=== PATIENT | female | born 1965 | race Caucasian/White ===

== ENCOUNTER 2016-07-20 11:15 | Emergency (ER) | payer SELFPAY ==
[~2016-07-20] VITALS: Ht 167.6 cm; Wt 109.5 kg
[~2016-07-20 11:15] MED LIST: AMLO-114 PO; CIPR-255 PO; DICL-201 PO; DICY20TA35 PO; EFF75 PO; GABA1CAP5 PO; GLC/500 PO; METO50TA16 PO; NAPR1TAB9 PO; ONDA4TAB10 SL; OXYC1TAB3 PO
[2016-07-20 11:21] VITALS: TEMP 36.2; Ht 167.6 cm; Wt 109.5 kg
--- NOTE | 2016-07-20 12:01 | DIAGNOSTIC IMAGING REPORT ---
RIGHT KNEE 3 VIEWS CLINICAL HISTORY: R knee pain Right pain COMPARISON: None. DISCUSSION: The bones and joint spaces appear intact. There is no evidence of fracture, dislocation or bony disease. There is no evidence for soft tissue swelling. IMPRESSION: Negative study. Electronically signed by: Shelton Lee M.D. 07/20/2016 11:59 AM Dictated Date/Time: 07/20/2016 11:59 AM
[2016-07-20] MEDS ORDERED: IBUP-1451 PO (12:25)
[2016-07-20] MEDS ORDERED: AMOX500C3 PO (12:25)
[2016-07-20 12:34] VITALS: BP 186/106; PULSE 73; O2SAT 97
--- NOTE | 2016-07-20 12:39 | EMERGENCY ROOM VISIT NOTE ---
History First contact with patient: 11:37 Chief Complaint: KNEEPAIN Stated Complaint: SEVERE KNEE PAIN History of Present Illness The patient is a 51 year old female who presents to the Emergency Room with 2 complaints today. The patient presents primarily with right knee pain that has been ongoing for the past several days. She denies any recent injury to the knee. 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 The patient reports that she did injure her right knee several years ago and was seen by Dr. Almeida. She did have an MRI of the knee that was normal. She has had no problems since that time of injury. The patient now reports that when she walks or attempts to turn, it feels like her knee wants to give out under her. She does feel an occasional popping sensation. The pain is not significantly worsened when going up or down steps. She denies any pain extending into the thigh or leg, and rates her discomfort a 7 out of 10 with weightbearing. She does take diclofenac for osteoarthritis, and has been taking it "forever". She does not feel that it is working for her anymore. The patient is also requesting a prescription for chronic sinusitis. She reports increasing pressure and congestion for the past month or better. She denies any significant headaches, fevers or blurred vision. She denies any significant sinus pain at this time. Review of Systems 10 system review was performed and was negative except for pertinent positives and negatives as indicated in history of present illness Past Medical/Surgical History Surgical Problems: (1) S/P gastroplasty Medical Problems: (1) Alcohol Abuse-Unspec (2) Chronic Sinusitis Nos (3) Diab Lolita Wo Compl, Type Ii Or Unspec Type, Not Uncntrld (4) Hx-Venous Thrombosis&Embolism (5) Hyperlipidemia Nec/Nos (6) Hypertension Nos (7) Irritable Bowel Syndrome Without Diarrhea (8) Ovarian Cyst Nec/Nos (9) Tobacco Use Disorder Surgical Problems: (1) S/P gastroplasty Family History FH: diabetes mellitus FH: gallbladder disease FH: heart disease FH: hypertension FH: kidney disease FH: seizures Social History Smoking Status: Current Every Day Smoker Drug Use: none Marital Status: Occupation Status: employed Current/Historical Medications Scheduled Amlodipine (Norvasc), 10 MG PO QPM Amoxicillin (Amoxil), 500 MG PO TID Diclofenac (Voltaren), 75 MG PO BID Gabapentin (Neurontin), 400 MG PO TID Metformin Hcl (Glucophage), 500 MG PO BID Metoprolol Tartrate (Lopressor) (Lopressor), 50 MG PO QID Scheduled PRN Ibuprofen Tab (Motrin), 800 MG PO Q8H PRN for Pain Allergies Coded Allergies: Adhesives (Verified Allergy, Unknown, rash, 07/20/16) Nickel (Verified Allergy, Unknown, contact dermatitis, 07/20/16) Physical Exam Vital Signs Date Time Temp Pulse Resp B/P Pulse Ox O2 Delivery O2 Flow Rate FiO2 07/20/16 11:21 36.2 74 18 187/111 97 Room Air Physical Exam CONSTITUTIONAL: Healthy and well nourished. Alert and oriented X 3 with positive affect. HEENT: Normocephalic, atraumatic. Pupils equal, round and reactive. No purulent rhinorrhea. No tenderness to palpation or percussion of the frontal or maxillary sinuses. Ears and nares are clear. NECK: Full active range of motion without discomfort. No JVD or carotid bruits. RESPIRATORY: Clear to auscultation bilaterally with no wheezing, crackles, rhonchi or stridor. CARDIOVASCULAR: Regular rate and rhythm with no murmurs, rubs or gallops. MUSCULOSKELETAL: Examination of the right knee shows diffuse tenderness to palpation about the patella and joint lines. Collateral ligaments are intact. The patient has full active range of motion with mild discomfort. No obvious joint effusion noted. No tenderness to palpation through the hamstrings. Negative anterior draw, negative posterior drawer, negative pivot shift. Pedal pulses are intact. INTEGUMENTARY: No rash or other significant dermatologic conditions noted. NEUROLOGIC: Right foot and toes are sensory intact. Medical Decision & Procedures ER Provider Diagnostic Interpretation: My interpretation of right knee x-rays shows mild to moderate tricompartmental osteoarthritis. No fractures or obvious joint effusion noted. RIGHT KNEE 3 VIEWS CLINICAL HISTORY: R knee pain Right pain COMPARISON: None. DISCUSSION: The bones and joint spaces appear intact. There is no evidence of fracture, dislocation or bony disease. There is no evidence for soft tissue swelling. IMPRESSION: Negative study. ED Course Patient history and physical exam were performed. Nurse's notes were reviewed. The patient refused any analgesics. X-rays of the right knee shows mild to moderate osteoarthritic changes. The patient reports that if she has some pain to keep her knee from bending, it would help her pain. In the immobilizer was dispensed. She was encouraged to intermittently apply ice to the knee. She was instructed to stop the diclofenac for now, and switched to ibuprofen 800 mg every 8 hours. She was also encouraged to alternate Tylenol as well for additional pain relief. She was encouraged to try limiting weightbearing for now. I did encourage her to follow-up with her PCP or orthopedics for any persistent pain. The patient was also requesting an antibiotic on [employer]s $4 antibiotic list. She has been on multiple antibiotics in the past, and reports that they all work. She was therefore given a prescription for amoxicillin 500 mg 3 times a day 10 days. She was instructed to follow-up with her family doctor if her sinus symptoms persist. The patient was happy with plan of care, voiced understanding of all discharge instructions, and denied any significant discomfort at the time of discharge. Medical Decision Impression Primary Impression: Right knee pain Additional Impressions: Osteoarthritis of right knee Sinusitis, acute Departure Information Prescriptions Ibuprofen Tab (MOTRIN) 800 Mg Tab 800 MG PO Q8H Y for Pain, #60 TAB For Initial Treatment Prov: Jonah Restrepo PA 07/20/16 Amoxicillin (AMOXIL) 500 Mg Cap 500 MG PO TID for 10 Days, #30 CAP Prov: Jonah Restrepo PA 07/20/16 Referrals Terese Funes D.O. (PCP) Patient Instructions My [facility] Problem Qualifiers Primary Impression: Right knee pain Chronicity: acute Qualified Codes: M25.561 - Pain in right knee Additional Impressions: Osteoarthritis of right knee Osteoarthritis type: primary Qualified Codes: M17.11 - Unilateral primary osteoarthritis, right knee Sinusitis, acute Sinusitis location: unspecified location Recurrence: recurrent Qualified Codes: J01.91 - Acute recurrent sinusitis, unspecified
== END 2016-07-20 12:38 | disposition home or self-care (01) ==
LOC: C.EDB 11:17 → C.EDD 12:38
DX: M25.561 Pain in right knee (principal); M17.11 Unilateral primary osteoarthritis, right knee; J01.91 Acute recurrent sinusitis, unspecified; F10.10 Alcohol abuse, uncomplicated; E11.9 Type 2 diabetes mellitus without complications; E78.5 Hyperlipidemia, unspecified; I10 Essential (primary) hypertension; K58.9 Irritable bowel syndrome, unspecified; F17.210 Nicotine dependence, cigarettes, uncomplicated; Z83.3 Family history of diabetes mellitus; Z83.79 Family history of other diseases of the digestive system; Z82.49 Family history of ischemic heart disease and other diseases of the circulatory system; Z84.1 Family history of disorders of kidney and ureter; Z79.899 Other long term (current) drug therapy

== ENCOUNTER 2024-08-19 13:00 | Inpatient (IN) ==
--- NOTE | 2024-08-19 13:16 | History & Physical Report ---
Date of Service August 19, 2024 Assessment & Plan (1) STEMI (ST elevation myocardial infarction): (2) Chest pain: Plan: Patient is 59 year old female with PMH DM II, HTN, PVC's on Flecainide, COPD, hypothyroidism, depression, chronic back pain, RLS, tobacco use, obesity presented to ER with c/o anterior neck pain, CP with radiation to back and RUE pain this morning. En route given 324mg aspirin and 3 SL nitro and fentanyl by EMS and was made a heart alert. 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 Patient reports upon leaving slabbing machine operator and arriving to ICU she had some anterior chest pain that she rated 2 out of 10 on pain scale that self resolved in several minutes. Currently chest pain free. Interventional cardiology consult and S/P cardiac cath 1. Severe multivessel coronary disease involving the LAD and PDA. LAD is the culprit. 2. Successful PCI of the LAD with implantation of 3 overlapped drug-eluting stents. 3. Patient will be on dual antiplatelet therapy for at least 1 to 2 years (preferably indefinitely secondary to extensive stenting). 4. Guideline directed medical therapy for secondary prevention of coronary disease has been initiated. This includes low-dose aspirin, high intensity statin therapy, beta-ld, and ARB (given diabetes). Additional titration of regimen to achieve target heart rate and blood pressure. 5. FLECAINIDE has been discontinued with newly identified CAD. ICU for close telemetry monitoring Resting echo ordered Trend troponin Aspirin, Brilinta, metoprolol tartrate, rosuvastatin, losartan Cardiology consult. CBC, BMP, magnesium labs in am 08/11/24 Lipid panel: Total cholesterol: 177, LDL: 104, HDL: 39, Triglycerides: 218 #PVC's History PVCs, has seen [facility] cardiology in past. On Flecainde and metoprolol tartrate 50mg 5 times a day Cardiology consult. Of note patient with h/o PVCs and is on Flecainide and takes metoprolol tartrate 50mg Five times a day. duplicating machine operator discontinued Flecainide and ordered metoprolol tartrate 25mg BID. Would appreciate cardiology consult and recommendations on medication regimen going forward as I anticipate patient may become more symptomatic with palpitations with change of medications (3) Type 2 diabetes mellitus: Plan: A1c: 6.5 on 08/11/24 Hold home metformin Novolog sliding scale per protocol (4) Hypertension: Plan: Previously was on home amlodipine 10mg daily, metoprolol tartrate 50mg 5x day With newly dx CAD losartan 25mg daily started. Will hold home amlodipine at this time and monitor BP for further medication adjustments (5) COPD (chronic obstructive pulmonary disease): Plan: No signs exacerbation Continue home inhalers (6) Hypothyroidism: Plan: TSH: 0.87 on 08/11/24 Continue levothryoxine (7) Depression: Plan: Continue venlafaxine (8) Tobacco use disorder: Plan: Was smoking 1.5ppd and over past 5 months is now down to smoking 5 cigarettes a day Congratulated patient on her success and encouraged cessation. Patient reports is now more motivated to completely quit DVT Prophylaxis SCDs Admit ICU Full Code as per discussion with pt Follows with Re Durham PA-C for routine care Pt was seen and care coordinated with Dr Obando. See addendum I spent a total of 65 minutes reviewing notes, outpatient records, labs, medication, coordinating, documenting and providing care for this patient excluding time spent in the performance of separately billed services and excluding time spent by another provider/QHP. History of Present Illness Chief Complaint: CP Primary Care Provider: Re Durham PA-C Patient is 59 year old female with PMH DM II, HTN, PVC's on Flecainide, COPD, hypothyroidism, depression, chronic back pain, RLS, tobacco use, obesity presented to ER with c/o CP this morning. Patient reports woke up this morning and had aching/soreness sensation of throat/anterior neck region. Then started with pain to chest that radiated to back and reports RUE pain. States had associated nausea and vomiting. She was given 324mg aspirin and 3 SL nitro and fentanyl by EMS and was a heart alert. 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 Patient reports upon leaving slabbing machine operator and arriving to ICU she had some anterior chest pain that she rated 2 out of 10 on pain scale that self resolved in several minutes. Patient denies any N/V, back pain with this episode. She is currently chest pain free. She has chronic palpitations and takes metoprolol tartrate fives times a day as well as flecainide. Patient reports chronic paresthesias extremities and chronic back pain. She denies any increased palpitations Denies SOB. Denies fever/chills, diarrhea, constipation, SOW, dizziness, syncope, vision changes, neck pain, cough, rhinorrhea, abdominal pain, extremity weakness, extremity edema, rashes, urinary symptoms. Allergies Allergy/AdvReac Type Severity Reaction Status Date / Time latex Allergy Mild SKIN Verified 12/18/22 09:41 REDNESS/ITCHING adhesive Allergy Unknown rash Verified 12/18/22 09:41 nickel Allergy Unknown contact Verified 12/18/22 09:41 dermatitis cefdinir [From Omnicef] AdvReac Intermediate diarrhea Verified 12/18/22 09:41 Home Medications Medication Instructions Recorded Confirmed Type albuterol sulfate 90 mcg/actuation 2 inha inhalation QID PRN 04/17/18 08/19/24 Rx aerosol inhaler shortness of breath or wheezing #1 g amlodipine 10 mg tablet (Norvasc) 10 mg PO HS 06/12/22 08/19/24 History cholecalciferol (vitamin D3) 1,250 1,250 mcg PO .weekly 06/12/22 08/19/24 History mcg (50,000 unit) tablet metformin 500 mg tablet 500 mg PO PM 06/12/22 08/19/24 History multivitamin 1 tab PO DAILY 06/12/22 08/19/24 History flecainide 50 mg tablet 100 mg PO DAILY 07/27/22 08/19/24 History trazodone 50 mg tablet 100 mg PO HS PRN Insomnia 07/27/22 08/19/24 History umeclidinium 62.5 mcg-vilanterol 1 inh inhalation QAM 07/27/22 08/19/24 History 25 mcg/actuation powdr for inhalation (Anoro Ellipta) celecoxib 200 mg capsule (Celebrex) 200 mg PO DAILY 12/18/22 08/19/24 History gabapentin 400 mg tablet 400 mg PO TID 12/18/22 08/19/24 History metoprolol tartrate 50 mg tablet 50 mg PO 5XD 12/18/22 08/19/24 History spironolactone 50 mg tablet 50 mg PO DAILY #30 tabs 12/18/22 08/19/24 Rx (Aldactone) levothyroxine 88 mcg tablet 88 mcg PO DAILY #30 tabs 12/28/22 08/19/24 Rx flecainide 50 mg tablet 50 mg PO PM 08/19/24 08/19/24 History venlafaxine 150 mg 150 mg PO PM 08/19/24 08/19/24 History capsule,extended release 24 hr venlafaxine 75 mg tablet,extended 75 mg PO PM 08/19/24 08/19/24 History release 24 hr Past Med/Surg History Problem List STEMI (ST elevation myocardial infarction) Chest pain Depression Lumbar spondylosis Chronic low back pain Lumbar facet joint syndrome Hypothyroidism PCOS (polycystic ovarian syndrome) Metabolic syndrome Hirsutism Dexamethasone suppressible hyperaldosteronism Vitamin D deficiency Type 2 diabetes mellitus Encounter for pre-operative examination Cecal diverticulitis (Acute) Encounter for other preprocedural examination History of back problems Tubal ligation status Fibroma of intraoral region Parotid gland pain Chronic sinus infection 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 Arthritis Diabetes NIDDM Hypertension Medical History Tobacco use disorder Irritable bowel syndrome without diarrhea Frequent PVCs lost to f/u with [facility] cardio COPD (chronic obstructive pulmonary disease) History of diverticulitis Sinus congestion CHRONIC Sinus drainage CHRONIC- POST NASAL DRIP Surgical History Hx of oral surgery (08/02/22) p Excision of Mass Right Cheek (Large Fibroma), Excision of Radiolucent Lesion Right Floor of Sinus and Maxilla,(Right), closure of large lateral sinus wall opening with advancement flap - Lewis Castillo DMD s Extraction of Teeth 1, 2, 3, 15, 20(Not Applicable) - Lewis Castillo DMD Hx of abdominal surgery ABDOMINAL FISTULA REPAIR History of esophagogastroduodenoscopy (EGD) History of cardiac radiofrequency ablation FOR PALPITATIONS H/O excision of mass History of gastric surgery H/O hernia repair x2 S/P cholecystectomy History of surgery vertical banded gastroplasty H/O abdominoplasty Previous section H/O knee surgery Family History Aunt Breast cancer Mother Diabetes Heart disease Hypertension Sister Diabetes Stroke Father Heart disease Grandmother Stroke Other Colorectal cancer No pertinent family history Social History (Updated 08/19/24 @ 16:36 by Denae Perez PA-C) Smoking Status: Current every day smoker Tobacco Type: Cigarettes packs per day: 1; Cigarettes Per Day: 5 cig per day; Second Hand Exposure: No; Do You Dip or Chew Tobacco: No; Hx Alcohol Use: No Hx Substance Use: No Preferred Language: Greenlandic Communication Ability: Effective Visual Impairment: No Limitations 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 Required: No Beliefs That Will Affect Care: None marital status: Current Living Situation: Family current occupational status: student How many Children do You have: 1 Feels Safe at Home: Yes Safety Concerns: Feels Safe At This Time Diet: diabetic during the past year weight has: decreased > 10 lbs Assistive Devices: Glasses Review of Systems Review of Systems: All systems reviewed & are unremarkable except as noted in HPI & below Physical Exam Physical Exam: General: no distress, obese female Head: normocephalic, atraumatic Eyes: conjunctiva non-injected, anicteric ENT: normal inspection external ears, nose, mucous membranes moist Neck: supple, trachea midline Lungs: clear, no respiratory distress, no wheezing/rhonchi/rales CV: RRR, no murmur, no pretibial edema Abd: protuberant, normal BS, soft, non-tender Ext: no cyanosis, no calf tenderness Neuro: A&O x 3, no focal deficits noted, normal affect Skin: warm, dry Results & Data Results & Data Laboratory Results Short CBC 08/19/24 Range/Units 12:45 WBC 13.52 H (4.8-10.8) K/ul Hgb 14.5 (12.0-16.0) g/dl Hct 42.2 (37.0-47.0) % Plt Count 324 (130-400) K/uL BMP 08/19/24 14:19 Sodium 132 L Potassium 4.0 Chloride 100 Carbon Dioxide 25 BUN 18 Creatinine 0.95 Glucose 119 H Calcium 9.4 Medications Administered Home Medications Medication Instructions Recorded Confirmed Last Taken albuterol sulfate 90 mcg/actuation 2 inha inhalation QID PRN 04/17/18 12/18/22 Unknown aerosol inhaler shortness of breath or wheezing #1 g amlodipine 10 mg tablet (Norvasc) 10 mg PO HS 06/12/22 12/18/22 08/01/22 22:00 cholecalciferol (vitamin D3) 1,250 1,250 mcg PO .weekly 06/12/22 12/18/22 07/26/22 22:00 mcg (50,000 unit) tablet lactobacillus combo no.11 15 1 cap PO DAILY 06/12/22 12/18/22 08/01/22 12:00 billion cell sprinkle capsule (Probiotic) metformin 500 mg tablet 500 mg PO BID 06/12/22 12/18/22 08/01/22 09:00 multivitamin 1 tab PO DAILY 06/12/22 12/18/22 08/01/22 12:00 vitamin B complex (B 1 tab PO QAM 06/12/22 12/18/22 08/01/22 12:00 Complex-Vitamin B12 tablet) flecainide 50 mg tablet 50 mg PO Q8H 07/27/22 12/18/22 08/01/22 04:30 trazodone 50 mg tablet 50 mg PO HS 07/27/22 12/18/22 08/01/22 22:00 umeclidinium 62.5 mcg-vilanterol 1 inh inhalation QAM 07/27/22 12/18/22 08/01/22 04:30 25 mcg/actuation powdr for inhalation (Anoro Ellipta) celecoxib 200 mg capsule (Celebrex) 200 mg PO DAILY 12/18/22 12/18/22 Unknown dexamethasone 1 mg tablet 1 mg PO DAILY #1 tab 12/18/22 12/18/22 Unknown gabapentin 400 mg tablet 400 mg PO QID 12/18/22 12/18/22 Unknown metoprolol tartrate 50 mg tablet 50 mg PO 5XD 12/18/22 12/18/22 Unknown ondansetron HCl 8 mg tablet 8 mg PO Q8H PRN nausea and vomiting 12/18/22 12/18/22 Unknown spironolactone 50 mg tablet 50 mg PO DAILY #30 tabs 12/18/22 12/18/22 Unknown (Aldactone) venlafaxine 50 mg tablet 225 mg PO HS 12/18/22 12/18/22 Unknown levothyroxine 88 mcg tablet 88 mcg PO DAILY #30 tabs 12/28/22 Unknown Supervising Physician Co-Signing Physician Notes I have seen and discussed the case with the collaborating advanced practitioner. I agree with the above H&P. I have reviewed and confirmed the patients medical history, the findings on physical examination, and the patients diagnosis and treatment plan with and agree with the information documented. Ms Kelley 59 year old female with PMH DM II, HTN, PVC's on Flecainide, COPD, hypothyroidism, depression, chronic back pain, RLS, tobacco use, obesity presented to ER with c/o anterior neck pain, CP s/p LHC 2/2 STEMI Patient is now s/p 3 REGINA of LAD Patient is doing well overall and despite initial chest pain s/p cath, feels symptom free. Patient denies any questions or concern EXAM AOx3. RRR and CTABL #STEMI #Obstructive coronary artery disease s/p stents continue asa, brilinta continue metoprolol 25mg bid hold flecinide 2/2 structural heart disease iso CAD, Cards consulted for any other recommendations/reassurance as patient on antiarrhythmic therapy for years admit icu rest of plan per HP I spent a total of 35 minutes coordinating, documenting, and providing care for this patient excluding time spent in the performance of separately billed services. All of the aforementioned completed outside of collaborating with the assigned advanced practitioner for a full treatment plan. I have reviewed the advanced practitioner's documentation, and I agree with, and take responsibility for the plan of care
--- NOTE | 2024-08-19 13:25 | Pre Anesthesia Assessment ---
Date of Service August 19, 2024 Pre Sedation Assessment Vital Signs Pulse 08/19/24 13:15 73 Cardiovascular RRR, no murmur, no edema Respiratory normal respiratory effort, lungs clear to auscultation Pre-Sedation Airway Assessment Smoking Status: Current every day smoker Mallampati class 3 ASA IV Notes The planned sedation has been discussed with the patient. Informed Consent was obtained. I have identified the patient, determined the appropriateness of sedation and have assessed the patient immediately prior to the procedure. All medicine(s) and interventions are by my order. [facility] [place] Procedure Codes (Charges) Indication for Procedure Indication for procedure: STEMI
[2024-08-19] MEDS: fentaNYL citrate PF 100 MCG/2 ML VIAL ONE (14:11)
[2024-08-19] MEDS: HEPARIN (PORCINE) 1000 UNIT/ML 10 ML (CATH LAB USE ONLY) ONE (14:11)
[2024-08-19] MEDS: MIDAZOLAM HCL 1 MG/ML 2ML VIAL ONE (14:12)
[2024-08-19] MEDS: OPTIRAY 350 ONE (14:12)
[2024-08-19] MEDS: NITROGLYCERIN/D5W 100MCG/ML 20ML SYR ONE (14:13)
[2024-08-19] MEDS: niCARdipine 2,000 MCG/20 ML SYR ONE (14:13)
[2024-08-19] MEDS: TICAGRELOR 90 MG TAB ONE (14:13)
--- NOTE | 2024-08-19 14:13 | Post Anesthesia Assessment ---
Date of Service August 19, 2024 Post Sedation Assessment Vital Signs Temp Pulse Pulse Resp BP BP Pulse Ox 08/19/24 13:15 73 08/19/24 13:13 36.8 C 72 21 131/79 97 08/19/24 13:13 97 08/19/24 13:13 36.8 C 72 21 131/79 97 O2 Del Method 08/19/24 13:15 08/19/24 13:13 Room Air 08/19/24 13:13 Room Air 08/19/24 13:13 Room Air Recovery Score Activity: Moves 4 extremities Respiration: Deep Breath/Cough Circulation: +/-20% PreAnes Value Consciousness: Fully Awake Oxygen Saturation: > 92% On Room Air Discharge Sedation Level of Care: Fast Track Phase II Post Sedation Plan On clinical assessment, the patient appears to have tolerated the sedation without complications. Patient is recovering as anticipated. Patient will continue to be monitored by nursing and may be discharged when sedation discharge criteria are met per below protocol. Upon Completions of procedure up to 15 minutes continue every 5 minute vital signs and the P.A.R. score; then discharge to a Phase I or Fast Track to Phase II per the following guidelines: * Discharge Patient to appropriate Phase II area if PAR is 8 or greater or return to pre- procedure baseline. The post - procedure orders will be as directed. * If PAR score is less than 8 or not return to pre-procedure baseline then patient will follow Phase I monitoring till PAR is reached for Phase II. The Phase I may be done in procedure room or may call to secure a Phase I area. * If naloxone or flumazenil are used for reversal, hold in Phase I for continued monitoring from when last reversal dose was given for a minimum of 60 minutes or longer pending the nurse and/or physician discretion of patient condition before discharge to Phase II. Please call the Sedation Physician to re-evaluate and complete post-note for discharge to Phase II area. Do NOT discharge from procedure sedation or Phase 1 until post- sedation evaluation note is complete by procedure /sedation MD Sedation Discharge Instructions to be given to the patient at discharge to home. [facility] [place] Procedure Codes (Charges) Indication for Procedure Indication for procedure: STEMI Sedation/Anesthesia Procedure 1: Sedation/Anesthesia: 16809 Mod Sedation by the same physician;Init15 Min Child Age 5 & Up (Initial 15 minutes, start time 1334) Total Sedation Time (minutes): 33 Procedure 2: Sedation/Anesthesia: 88031 Mod Sedation by the same physician; Ea [id number] Minutes (Additional 18 minutes, end time 1407) Total Sedation Time (minutes): 33
[2024-08-19] MEDS ORDERED: ONDANSETRON INJ 2 MG/ML 2 ML VIAL IV PRN (14:14)
[2024-08-19] MEDS ORDERED: ATROPINE SULFATE 0.1 MG/ML 10ML SYR IV PRN (14:14)
[2024-08-19 15:05] LABS: BUN Creatinine Ratio 18.9 (10-20); Calcium 9.4 mg/dl (8.6-10.3); Creatinine Clr Calc Pharmacy 82.8 ml/min
[2024-08-19 15:07] LABS: Basophils # (auto) 0.09 K/uL (0.00-0.20); Basophils % (auto) 0.7 %; Eosinophils # (auto) 0.13 K/uL (0.00-0.50); Hematocrit (blood only) 42.2 % (37.0-47.0); Hemoglobin 14.5 g/dl (12.0-16.0); Immature Granulocytes # (auto) 0.09 K/uL (0.01-0.20); Immature Granulocytes % (auto) 0.7 %; Lymphocytes # (auto) 3.36 K/uL (1.20-3.40); Lymphocytes % (auto) 24.9 %; Mean Corpuscular Hemoglobin 33.6 pg (25.0-34.0); Mean Corpuscular Hgb Conc 34.4 g/dL (32.0-36.0); Mean Corpuscular Volume 97.7 fL (80.0-100.0); Mean Platelet Volume 10.7 fL (9.4-12.4); Monocytes # (auto) 1.07 K/uL (0.11-0.59); Monocytes % (auto) 7.9 %; Neutrophils # (auto) 8.78 K/uL (1.40-6.50); Neutrophils % (auto) 64.8 %; Platelet Count 324 K/uL (130-400); RDW Coefficient of Variation 13.1 % (11.5-14.5); RDW Standard Deviation 46.9 fL (36.4-46.3); Red Blood Count 4.32 M/uL (4.20-5.40); White Blood Count 13.52 K/ul (4.8-10.8)
[2024-08-19 15:12] LABS: Troponin I High Sensitivity 38.8 pg/ml (0-14)
--- NOTE | 2024-08-19 15:31 | Cardiac Catheterization ---
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 Cardiac Status Clinical evaluation leading to the procedure CAD Presenation: STEMI Anginal Classification: CCS IV Heart Failure: No Cardiogenic Shock within 24 Hours: No Cardiac Arrest within 24 Hours: No Imaging Studies Past 6 Months: No STEMI OR Non-STEMI Symptom Onset Date: 08/19/24 Symptom Onset Time: 06:00 Thrombolytics: No Coronary Anatomy Dominant: Right Left Main (% Stenosis): Normal LAD (% Stenosis): Mid (100%) D1 (% Stenosis): Ostial (95%) Circumflex (% Stenosis): Mid (50% +30%) OM1 (% Stenosis): Proximal (30%) OM2 (% Stenosis): Normal L PL1 (% Stenosis): Normal RCA (% Stenosis): Mid (30%) R PDA (% Stenosis): Mid (80%) R PL1 (% Stenosis): Normal Diagnostic Physicians Name: Haresh Diaz MD, PhD Closure Device Percutaneous Entry Location: Radial Closure Device: Radial Band Recommendations: Medical Therapy and/or Counseling and PCI without planned CABG PCI Indication: PCI for STEMI - Stable First Noted: First EKG Lesion Segment Name: Mid LAD Culprit Artery: Yes Stenosis Prior to Rx (%): 100 Chronic Total Occlusion: No Pre-Procedure DARLING Flow: 0 Previously Treated Lesion: No Lesion Complexity: High/C Lesion Length (mm): 17 Thrombus Present: Yes Bifurcation Lesion: Yes Guidewire Across Lesion: Yes Intraprocedure Events Significant Disection: No Perforation: No Cardiac Cath Procedure Full Procedure Date August 19, 2024 Pre-Procedure Diagnosis Pre-Procedure Diagnosis: STEMI AUC Score AUC Score: 09 Post-Procedure Diagnosis Post-Procedure Diagnosis: Severe CAD and Successful PCI Procedure(s) Performed Procedure(s) Performed: Coronary Angiography and Drug Eluting Stent Brake Operator Haresh Diaz MD, PhD Estimated Blood Loss Estimated Blood Loss: 5 cc Medication(s) Medication(s): Fentanyl, Heparin, Lidocaine 1%, Nicardipine, Nitroglycerin and Versed Summary of Findings Brief description: Patient was brought to the cardiac catheterization suite where she was shaved and prepped in a sterile fashion. Sedated using IV Versed and fentanyl. Soft tissues of the right wrist were anesthetized using 2 mL of 1% Xylocaine. The right radial artery was accessed with a modified Seldinger technique and a 6 Ivorian radial artery glide sheath was placed. Patient was provided anticoagulation with IV heparin and antispasmodics including nicardipine and nitroglycerin. All catheters were advanced and exchanged over a 0.035 J-tip wire. Left coronary angiography in orthogonal views with a 5 Ivorian Sligo 4 diagnostic catheter. Right coronary angiography in orthogonal views with a 5 Ivorian Sligo 4 diagnostic catheter. Diagnostic catheters were removed. Decision was made to proceed with PCI of the LAD. A 6 Ivorian EBU 3.5 guide catheter was used to engage the left main coronary. A BMW universal guidewire was advanced under fluoroscopic guidance and positioned distally in the LAD. Lesion was predilated with a 2.0 x 12 mm trek balloon with 2 inflations up to 8 pam. A bullet lubricant mixer angiography was performed. A 2.25 x 18 mm Kevan drug-eluting stent was then advanced and positioned across the original lesion where it was deployed at 12 pam. Balloon was removed. Repairer Cylinder Heads angiography performed. After visualizing the entire LAD it was decided to place a 2.0 x 8 mm Kevan drug- eluting stent in an overlap fashion in the distal LAD. However it was not long enough to cover the lesion. It was removed. A 2.0 x 15 mm Kevan drug-eluting stent was then advanced and positioned so that its proximal edge was within the distal segment of the first stent and the stent completely covered the distal LAD lesion. Stent was deployed at 12 pam. The balloon was pulled back and a second inflation was done across the overlapped segment at 18atm (2.25 final diameter). Stent balloon removed. 2.25 x 22 mm Kevan drug-eluting stent was then advanced and positioned in an overlap fashion proximal to the initial stent. It was then deployed at 14 pam. Stent balloon removed. Repairer Cylinder Heads angiography performed. Final angiographic evaluation was performed with the wire out. Guide catheter was removed. Radial artery sheath was removed. Hemostasis was obtained using TR band. Patient was hemodynamically stable and asymptomatic. She was returned to the recovery area. This ended the case. Coronary angiography findings: [id number]-[id number] vessel bifurcating into LAD and circumflex. Mild luminal irregularities. [id number]-gmoxf-ovgvaoh. Proximal segment has mild luminal irregularities and then gives a small caliber first diagonal after 2 septal branches. Diagonal has an ostial 95% stenosis. The mid LAD just after the diagonal has 100% occlusion and DARLING 0 flow. This is the culprit lesion. RRm-gamqc-gamvrlw and nondominant vessel. Travels in the AV groove where the proximal segment has luminal irregularities. Gives a large branching OM1 which has proximal 30% stenosis. Mid AV groove circumflex remains large and has a 50% stenosis and then a 30% diffuse stenosis. Circumflex gives a small OM 2. The distal AV groove vessel is without disease and provides a large posterolateral of medium caliber. This vessel also has no significant disease and is tortuous. RCA-this is large caliber and dominant. Proximal segment without disease. Mid segment with focal 30% stenosis. Distal vessel without disease and bifurcates into a large posterolateral and a large PDA. The right PLB has no disease and the PDA has mid 80% stenosis. PCI LAD-there is a long stent train beginning in the late proximal LAD, extending across the diagonal and through the mid segment and terminating in the distal LAD after a second diagonal branch. 0% residual stenosis post PCI DARLING-3 flow post PCI No evidence of dissection or perforation post PCI Summary: 1. Severe multivessel coronary disease involving the LAD and PDA. LAD is the culprit. 2. Successful PCI of the LAD with implantation of 3 overlapped drug-eluting stents. 3. Patient will be on dual antiplatelet therapy for at least 1 to 2 years (preferably indefinitely secondary to extensive stenting). 4. Guideline directed medical therapy for secondary prevention of coronary disease has been initiated. This includes low-dose aspirin, high intensity statin therapy, beta-ld, and ARB (given diabetes). Additional titration of regimen to achieve target heart rate and blood pressure. 5. FLECAINIDE has been discontinued with newly identified CAD. 6. Recommend CARDIAC REHAB per guidelines. Hemodynamics Rest Ao:: 142/76 mmHg Final Ao: 128/78 mmHg LV: Not performed Recommendations Recommendations: Medical Therapy and/or Counseling and PCI without planned CABG Radiation Exposure (mGy) 2985 mGy, fluoroscopy time 11.1 minutes Contrast (mls) 260 Anesthesia 1 mg Versed, 25 mcg fentanyl IV. Start time 1334, end time 1407 Procedural Complication(s) None Disposition ICU I attest to the content of the Intraoperative Record and any orders documented therein. Any exceptions are noted below. [facility] Card Cath Procedure Codes Cardiac Catheterization Procedure 1: Cardiovascular Cath Procedures: 28821 Coronaries Moderate Sedation Procedure 1: Sedation/Anesthesia: 16802 Mod Sedation by the same physician;Init15 Min Child Age 5 & Up (Initial 15 minutes, start 1334) Procedure 2: Sedation/Anesthesia: 14520 Mod Sedation by the same physician; Ea [id number] Minutes (Additional 18 minutes, END 1407) Stenting Procedure 1: Cardiovascular Stent Procedures: 28099 Perc transluminal revascularization of acute sub/total occl, aMI (LAD) PG Care Time/CCT Total # of Minutes Spent Total Time Spent with Patient: Total time spent is greater than 50% in coordination of care (as documented) at patient's floor/unit and/or counseling patient:
--- NOTE | 2024-08-19 15:55 | Electrocardiogram Report ---
Test Reason : Blood Pressure : */* mmHG Vent. Rate : 76 BPM Atrial Rate : 76 BPM P-R Int : 192 ms QRS Dur : 62 ms QT Int : 374 ms P-R-T Axes : 46 36 39 degrees QTcB Int : 420 ms Normal sinus rhythm Low voltage QRS Borderline ECG ST changes concerning for anterior injury Confirmed by Dion Carter ([id number]) on 08/19/2024 3:55:04 PM Referred By: REFERRED SELF Confirmed By: Dion Carter
--- NOTE | 2024-08-19 15:55 | Electrocardiogram Report ---
Test Reason : Blood Pressure : */* mmHG Vent. Rate : 68 BPM Atrial Rate : 68 BPM P-R Int : 202 ms QRS Dur : 80 ms QT Int : 408 ms P-R-T Axes : 37 16 15 degrees QTcB Int : 433 ms Normal sinus rhythm Low voltage QRS Abnormal ECG Confirmed by Dion Carter ([id number]) on 08/19/2024 3:55:35 PM Referred By: REFERRED SELF Confirmed By: Dion Carter
[2024-08-19] MEDS: SODIUM CHLORIDE 0.9% 1,000 ML IV SCH (16:06)
[2024-08-19 16:19] LABS: Estimated Average Glucose 140 mg/dl; Hemoglobin A1C 6.5 % (4.5-5.6)
[2024-08-19] MEDS: ICU Protocol for HYPERglycemia SCH (16:31)
--- NOTE | 2024-08-19 16:57 | Critical Care Consultation ---
Date of Consultation August 19, 2024 Assessment & Plan (1) STEMI (ST elevation myocardial infarction): Impression: 59-year-old female presents to the ICU status post heart catheterization. Neuro - RASS GOAL 0 Avoid sedating medications Multimodal pain management. APAP PRN pain/fever Cardiac - Post-PCI EKG pending MAP goal > 65mmHg Cardiology consultation DAPT in AM, BB and ACEI as hemodynamics allow TTE pending Start statin A1c and lipid panel pending Respiratory - SpO2 > 92% IS/Flutter HOB 30 GI - Diet: Advance NIA RENAL/LYTES - Replete electrolytes as indicated Maintain net even to net negative ENDO - BG 140-180 per [facility] guidelines ISS if needed while inpatient A1c pending HEME - DAPT as above ID - No acute concerns LINES/TUBES/DRAINS - PIV x2 DVT PROPHYLAXIS - SCDs Critical care will sign off at this time History of Present Illness Reason for Consultation: Status post PCI for STEMI Attending Physician: Teresita Obando MD History of Present Illness History of present illness obtained from prior records::this is a 59-year-old female presenting for STEMI alert. Patient began having symptoms of pain at around 6 AM. Scribes initial throat pain. This then progressed to the sternal chest pain going to her back. Pain then went to her right arm patient history of significant cardiac disease including arrhythmias with ablation, hypertension, diabetes. patient has received 3 rounds of nitroglycerin as well as 324 of aspirin. 100 mg of fentanyl. Patient's pain is currently resolved after fentanyl use During my evaluation the patient having mild chest discomfort intermittent in nature not corresponding to any ectopy noted on bedside monitor. Allergies Allergy/AdvReac Type Severity Reaction Status Date / Time latex Allergy Mild SKIN Verified 12/18/22 09:41 REDNESS/ITCHING adhesive Allergy Unknown rash Verified 12/18/22 09:41 nickel Allergy Unknown contact Verified 12/18/22 09:41 dermatitis cefdinir [From Omnicef] AdvReac Intermediate diarrhea Verified 12/18/22 09:41 Home Medications Medication Instructions Recorded Confirmed Type albuterol sulfate 90 mcg/actuation 2 inha inhalation QID PRN 04/17/18 08/19/24 Rx aerosol inhaler shortness of breath or wheezing #1 g amlodipine 10 mg tablet (Norvasc) 10 mg PO HS 06/12/22 08/19/24 History cholecalciferol (vitamin D3) 1,250 1,250 mcg PO .weekly 06/12/22 08/19/24 History mcg (50,000 unit) tablet metformin 500 mg tablet 500 mg PO PM 06/12/22 08/19/24 History multivitamin 1 tab PO DAILY 06/12/22 08/19/24 History flecainide 50 mg tablet 100 mg PO DAILY 07/27/22 08/19/24 History trazodone 50 mg tablet 100 mg PO HS PRN Insomnia 07/27/22 08/19/24 History umeclidinium 62.5 mcg-vilanterol 1 inh inhalation QAM 07/27/22 08/19/24 History 25 mcg/actuation powdr for inhalation (Anoro Ellipta) celecoxib 200 mg capsule (Celebrex) 200 mg PO DAILY 12/18/22 08/19/24 History gabapentin 400 mg tablet 400 mg PO TID 12/18/22 08/19/24 History metoprolol tartrate 50 mg tablet 50 mg PO 5XD 12/18/22 08/19/24 History spironolactone 50 mg tablet 50 mg PO DAILY #30 tabs 12/18/22 08/19/24 Rx (Aldactone) levothyroxine 88 mcg tablet 88 mcg PO DAILY #30 tabs 12/28/22 08/19/24 Rx flecainide 50 mg tablet 50 mg PO PM 08/19/24 08/19/24 History venlafaxine 150 mg 150 mg PO PM 08/19/24 08/19/24 History capsule,extended release 24 hr venlafaxine 75 mg tablet,extended 75 mg PO PM 08/19/24 08/19/24 History release 24 hr Patient History Medical History Tobacco use disorder Irritable bowel syndrome without diarrhea Frequent PVCs lost to f/u with [facility] cardio COPD (chronic obstructive pulmonary disease) History of diverticulitis Sinus congestion CHRONIC Sinus drainage CHRONIC- POST NASAL DRIP Surgical History Hx of oral surgery (08/02/22) p Excision of Mass Right Cheek (Large Fibroma), Excision of Radiolucent Lesion Right Floor of Sinus and Maxilla,(Right), closure of large lateral sinus wall opening with advancement flap - Lewis R Castillo, DMD s Extraction of Teeth 1, 2, 3, 15, 20(Not Applicable) - Lewis Castillo, DMD Hx of abdominal surgery ABDOMINAL FISTULA REPAIR History of esophagogastroduodenoscopy (EGD) History of cardiac radiofrequency ablation FOR PALPITATIONS H/O excision of mass History of gastric surgery H/O hernia repair x2 S/P cholecystectomy History of surgery vertical banded gastroplasty H/O abdominoplasty Previous section H/O knee surgery Family History Aunt Breast cancer Mother Diabetes Heart disease Hypertension Sister Diabetes Stroke Father Heart disease Grandmother Stroke Other Colorectal cancer No pertinent family history Social History Smoking Status: Current every day smoker Tobacco Type: Cigarettes packs per day: 1; Cigarettes Per Day: 5 cig per day; Second Hand Exposure: No; Do You Dip or Chew Tobacco: No; Hx Alcohol Use: No Hx Substance Use: No Preferred Language: Vietnamese Communication Ability: Effective Visual Impairment: No Limitations Sales Developer Required: No Beliefs That Will Affect Care: None marital status: Current Living Situation: Family current occupational status: student How many Children do You have: 1 Feels Safe at Home: Yes Safety Concerns: Feels Safe At This Time Diet: diabetic during the past year weight has: decreased > 10 lbs Assistive Devices: Glasses Physical Exam Physical Exam: General: Alert. nontoxic. Skin: Warm, dry, Head: Atraumatic Ears, nose, mouth and throat: airway patent Cardiovascular: Normal peripheral perfusion Respiratory: no respiratory distress Gastrointestinal: Non distended Musculoskeletal: No deformity Results & Data Results & Data Vital Signs (Past 12 Hours) Vital Signs Temp Pulse Pulse Resp BP BP Pulse Ox 08/19/24 16:00 69 08/19/24 15:45 147/91 H 08/19/24 15:45 69 18 93 08/19/24 15:42 68 17 93 08/19/24 15:30 135/82 08/19/24 15:27 67 15 95 08/19/24 15:21 72 17 92 08/19/24 15:16 08/19/24 15:15 145/85 H 08/19/24 15:10 08/19/24 15:10 73 08/19/24 14:45 69 18 125/68 95 08/19/24 14:29 71 16 126/78 94 08/19/24 13:30 58 L 95 08/19/24 13:28 130/92 08/19/24 13:18 20 97 08/19/24 13:15 131/79 08/19/24 13:15 73 08/19/24 13:13 36.8 C 72 21 131/79 97 08/19/24 13:13 97 08/19/24 13:13 36.8 C 72 21 131/79 97 O2 Del Method 08/19/24 16:00 08/19/24 15:45 08/19/24 15:45 08/19/24 15:42 08/19/24 15:30 08/19/24 15:27 08/19/24 15:21 08/19/24 15:16 Room Air 08/19/24 15:15 08/19/24 15:10 Room Air 08/19/24 15:10 08/19/24 14:45 Room Air 08/19/24 14:29 Room Air 08/19/24 13:30 08/19/24 13:28 08/19/24 13:18 08/19/24 13:15 08/19/24 13:15 08/19/24 13:13 Room Air 08/19/24 13:13 Room Air 08/19/24 13:13 Room Air Critical Care Results & Data Vital Signs (Past 12 Hours) Vital Signs Temp Pulse Pulse Resp BP BP Pulse Ox 08/19/24 18:01 137/107 H 08/19/24 18:01 137/107 H 08/19/24 18:00 72 23 97 08/19/24 17:41 141/87 H 08/19/24 17:06 77 16 97 08/19/24 17:00 77 17 97 08/19/24 17:00 138/98 08/19/24 16:57 73 18 97 08/19/24 16:38 139/85 08/19/24 16:28 36.9 C 18 08/19/24 16:28 08/19/24 16:28 69 08/19/24 16:18 140/81 08/19/24 16:12 74 20 95 08/19/24 16:06 74 17 94 08/19/24 16:00 128/87 08/19/24 16:00 69 08/19/24 15:45 147/91 H 08/19/24 15:45 69 18 93 08/19/24 15:42 68 17 93 08/19/24 15:30 135/82 08/19/24 15:27 67 15 95 08/19/24 15:21 72 17 92 08/19/24 15:16 08/19/24 15:15 145/85 H 08/19/24 15:10 08/19/24 15:10 73 08/19/24 14:45 69 18 125/68 95 08/19/24 14:29 71 16 126/78 94 08/19/24 13:30 58 L 95 08/19/24 13:28 130/92 08/19/24 13:18 20 97 08/19/24 13:15 131/79 08/19/24 13:15 73 08/19/24 13:13 36.8 C 72 21 131/79 97 08/19/24 13:13 97 08/19/24 13:13 36.8 C 72 21 131/79 97 Pulse Ox O2 Del Method O2 Del Method 08/19/24 18:01 08/19/24 18:01 08/19/24 18:00 08/19/24 17:41 08/19/24 17:06 08/19/24 17:00 08/19/24 17:00 08/19/24 16:57 08/19/24 16:38 08/19/24 16:28 08/19/24 16:28 97 Room Air 08/19/24 16:28 08/19/24 16:18 08/19/24 16:12 08/19/24 16:06 08/19/24 16:00 08/19/24 16:00 08/19/24 15:45 08/19/24 15:45 08/19/24 15:42 08/19/24 15:30 08/19/24 15:27 08/19/24 15:21 08/19/24 15:16 Room Air 08/19/24 15:15 08/19/24 15:10 Room Air 08/19/24 15:10 08/19/24 14:45 Room Air 08/19/24 14:29 Room Air 08/19/24 13:30 08/19/24 13:28 08/19/24 13:18 08/19/24 13:15 08/19/24 13:15 08/19/24 13:13 Room Air 08/19/24 13:13 Room Air 08/19/24 13:13 Room Air Lab & Micro Results (Past 24 Hours) RBC 4.32 M/uL (4.20-5.40) 08/19/24 WBC 13.52 K/ul (4.8-10.8) H 08/19/24 Hgb 14.5 g/dl (12.0-16.0) 08/19/24 Hct 42.2 % (37.0-47.0) 08/19/24 MCV 97.7 fL (80.0-100.0) 08/19/24 MCH 33.6 pg (25.0-34.0) 08/19/24 MCHC 34.4 g/dL (32.0-36.0) 08/19/24 RDW Standard Deviation 46.9 fL (36.4-46.3) H 08/19/24 RDW Coefficient of Variation 13.1 % (11.5-14.5) 08/19/24 Plt Count 324 K/uL (130-400) 08/19/24 MPV 10.7 fL (9.4-12.4) 08/19/24 Neutrophils (%) (Auto) 64.8 % 08/19/24 Lymphocytes (%) (Auto) 24.9 % 08/19/24 Monocytes # (Auto) 1.07 K/uL (0.11-0.59) H 08/19/24 Eosinophils # (Auto) 0.13 K/uL (0.00-0.50) 08/19/24 Immature Granulocyte % (Auto) 0.7 % 08/19/24 Neutrophils # (Auto) 8.78 K/uL (1.40-6.50) H 08/19/24 Lymphocytes # (Auto) 3.36 K/uL (1.20-3.40) 08/19/24 Monocytes # (Auto) 1.07 K/uL (0.11-0.59) H 08/19/24 Eosinophils # (Auto) 0.13 K/uL (0.00-0.50) 08/19/24 Basophils # (Auto) 0.09 K/uL (0.00-0.20) 08/19/24 Immature Granulocyte # (Auto) 0.09 K/uL (0.01-0.20) 5 Na 132 mmol/L (136-145) L 08/19/24 K 4.0 mmol/L (3.5-5.1) 08/19/24 Cl 100 mmol/L (98-107) 08/19/24 CO2 25 mmol/L (21-32) 08/19/24 Anion Gap 7 (3-11) 08/19/24 BUN 18 mg/dl (6-23) 08/19/24 Creatinine 0.95 mg/dl (0.6-1.2) 08/19/24 BUN/Creatinine Ratio 18.9 (10-20) 08/19/24 Glu 119 mg/dl (70-99(Fasting)) H 08/19/24 Ca 9.4 mg/dl (8.6-10.3) 08/19/24 Calcium Level 9.4 mg/dl (8.6-10.3) 08/19/24 14:19 I & O Totals 24 Hours 08/18/24 08/19/24 08/20/24 06:59 06:59 06:59 Intake Total 535 / 535 Balance 535 / 535 Cumulative 08/19/24 12:56 thru 08/19/24 18:34 Intake Total 535 Balance 535 RT Ventilator Mngmt (Last Documented) Ventilator Ordered Settings Respiratory Rate 23 08/19/24 18:00 Ventilator - PT Measurements Respiratory Rate 23 Coding Level of Care Code 49256 IN/OBS CONSULT LVL 3,45M Diagnoses STEMI (ST elevation myocardial infarction) I21.3
[2024-08-19] MEDS: ROSUVASTATIN CALCIUM 10 MG TAB PO ONE (17:35)
[2024-08-19] MEDS: IODIXANOL (VISIPAQUE) 320 MG/ML 100ML IV ONE (17:35)
--- NOTE | 2024-08-19 18:16 | Emergency Department Note ---
Impression & Plan ST elevation (STEMI) myocardial infarction ED Provider Note NAME: LAURI ESPINOZA AGE: 59 SEX: F : 1965 ARRIVES VIA: Ambulance INFORMANT: [Patient][, ] ED PROVIDER(S): [Kim Parham MD] CHIEF COMPLAINT: STEMI alert HPI: this is a 59-year-old female presenting for STEMI alert. Patient began having symptoms of pain at around 6 AM. Scribes initial throat pain. This then progressed to the sternal chest pain going to her back. Pain then went to her right arm patient history of significant cardiac disease including arrhythmias with ablation, hypertension, diabetes. patient has received 3 rounds of nitroglycerin as well as 324 of aspirin. 100 mg of fentanyl. Patient's pain is currently resolved after fentanyl use. ROS: See above HPI for pertinent positives & negatives. A total of [10] systems reviewed and were otherwise negative. PAST MEDICAL HISTORY: [See Below] PAST SURGICAL HISTORY: [See Below] FAMILY HISTORY: [See Below] SOCIAL HISTORY: [See Below] HOME MEDICATIONS: [See Below] ALLERGIES: [See Below] VITALS: See Below PHYSICAL EXAMINATION: General: resting comfortably in no acute distress Head: Normocephalic and atraumatic Eyes: Normal inspection, extraocular muscles intact Ear, nose, throat: Normal external exam Neck: Normal range of motion Respiratory: lungs clear to auscultation bilaterally Cardiovascular: Regular rate/rhythm, no murmur GI: soft, nontender, no guarding or rebound Extremities: nontender, moves all extremities Neuro: The patient awake and alert, appropriately conversive, no focal deficits, symmetric faces Skin: Warm, dry, and intact MEDICAL DECISION MAKING: this is a 59-year-old female presenting for STEMI alert. Patient began having chest pain. EMS EKG was provided to me which shows signs of ST elevations in V1, V2 with abnormal morphology. This is appear to be a significant change from her previous baseline EKG. 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 He will take the patient to the Ambulatory Analyst at this time Differential diagnosis: STEMI, NSTEMI, ACS, PE, dissection Independent History obtained from: EMS Cardiac Monitoring: An order was placed for continuous cardiac monitoring. The monitor shows a rate of 77 with sinus rhythm. Past Med/Surg History Problem List (Updated 08/19/24 @ 18:22 by Kim Parham MD) ST elevation (STEMI) myocardial infarction (Acute) STEMI (ST elevation myocardial infarction) Chest pain Depression Lumbar spondylosis Chronic low back pain Lumbar facet joint syndrome Hypothyroidism PCOS (polycystic ovarian syndrome) Metabolic syndrome Hirsutism Dexamethasone suppressible hyperaldosteronism Vitamin D deficiency Type 2 diabetes mellitus Encounter for pre-operative examination Cecal diverticulitis (Acute) Encounter for other preprocedural examination History of back problems Tubal ligation status Fibroma of intraoral region Parotid gland pain Chronic sinus infection 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 Arthritis Diabetes NIDDM Hypertension Medical History Tobacco use disorder Irritable bowel syndrome without diarrhea Frequent PVCs lost to f/u with [facility] cardio COPD (chronic obstructive pulmonary disease) History of diverticulitis Sinus congestion CHRONIC Sinus drainage CHRONIC- POST NASAL DRIP Surgical History Hx of oral surgery (08/02/22) p Excision of Mass Right Cheek (Large Fibroma), Excision of Radiolucent Lesion Right Floor of Sinus and Maxilla,(Right), closure of large lateral sinus wall opening with advancement flap - Lewis Castillo DMD s Extraction of Teeth 1, 2, 3, 15, 20(Not Applicable) - Lewis Castillo DMD Hx of abdominal surgery ABDOMINAL FISTULA REPAIR History of esophagogastroduodenoscopy (EGD) History of cardiac radiofrequency ablation FOR PALPITATIONS H/O excision of mass History of gastric surgery H/O hernia repair x2 S/P cholecystectomy History of surgery vertical banded gastroplasty H/O abdominoplasty Previous section H/O knee surgery Family History Aunt Breast cancer Mother Diabetes Heart disease Hypertension Sister Diabetes Stroke Father Heart disease Grandmother Stroke Other Colorectal cancer No pertinent family history Social History (Updated 08/19/24 @ 16:36 by Denae Perez PA-C) Smoking Status: Current every day smoker Tobacco Type: Cigarettes packs per day: 1; Cigarettes Per Day: 5 cig per day; Second Hand Exposure: No; Do You Dip or Chew Tobacco: No; Hx Alcohol Use: No Hx Substance Use: No Preferred Language: Sinhala Communication Ability: Effective Visual Impairment: No Limitations Skip Miner Required: No Beliefs That Will Affect Care: None marital status: Current Living Situation: Family current occupational status: student How many Children do You have: 1 Feels Safe at Home: Yes Safety Concerns: Feels Safe At This Time Diet: diabetic during the past year weight has: decreased > 10 lbs Assistive Devices: Glasses Allergies Allergies Allergy/AdvReac Type Severity Reaction Status Date / Time latex Allergy Mild SKIN Verified 12/18/22 09:41 REDNESS/ITCHING adhesive Allergy Unknown rash Verified 12/18/22 09:41 nickel Allergy Unknown contact Verified 12/18/22 09:41 dermatitis cefdinir [From Omnicef] AdvReac Intermediate diarrhea Verified 12/18/22 09:41 Home Meds Home Medications Medication Instructions Recorded Confirmed amlodipine 10 mg tablet (Norvasc) 10 mg PO HS 06/12/22 08/19/24 cholecalciferol (vitamin D3) 1,250 1,250 mcg PO .weekly 06/12/22 08/19/24 mcg (50,000 unit) tablet metformin 500 mg tablet 500 mg PO PM 06/12/22 08/19/24 multivitamin 1 tab PO DAILY 06/12/22 08/19/24 flecainide 50 mg tablet 100 mg PO DAILY 07/27/22 08/19/24 trazodone 50 mg tablet 100 mg PO HS PRN Insomnia 07/27/22 08/19/24 umeclidinium 62.5 mcg-vilanterol 1 inh inhalation QAM 07/27/22 08/19/24 25 mcg/actuation powdr for inhalation (Anoro Ellipta) celecoxib 200 mg capsule (Celebrex) 200 mg PO DAILY 12/18/22 08/19/24 gabapentin 400 mg tablet 400 mg PO TID 12/18/22 08/19/24 metoprolol tartrate 50 mg tablet 50 mg PO 5XD 12/18/22 08/19/24 flecainide 50 mg tablet 50 mg PO PM 08/19/24 08/19/24 venlafaxine 150 mg 150 mg PO PM 08/19/24 08/19/24 capsule,extended release 24 hr venlafaxine 75 mg tablet,extended 75 mg PO PM 08/19/24 08/19/24 release 24 hr Previous Rx's Medication Instructions Recorded albuterol sulfate 90 mcg/actuation 2 inha inhalation QID PRN 04/17/18 aerosol inhaler shortness of breath or wheezing #1 g spironolactone 50 mg tablet 50 mg PO DAILY #30 tabs 12/18/22 (Aldactone) levothyroxine 88 mcg tablet 88 mcg PO DAILY #30 tabs 12/28/22 Results & Data (ED) Vital Signs Vital Signs - 24 hr 08/19/24 13:13 08/19/24 13:13 08/19/24 13:13 Temperature 36.8 C 36.8 C Temperature Source Oral Oral Pulse Rate 72 Pulse Rate [Apical] 72 Pulse Rate from SpO2 Sensor Pulse Rhythm [Apical] Respiratory Rate 21 21 Respiratory Effort / Characteristics Non-Labored Spontaneous Respiratory Depth Normal Blood Pressure 131/79 Blood Pressure [Right Arm] 131/79 Blood Pressure Mean 96 Blood Pressure Mean [Right Arm] 96 Pulse Oximetry 97 97 97 Oxygen Delivery Method Room Air Room Air Room Air Sepsis Recent Fever Within 48 Hours No Sepsis New/Unexplained Change in Mental Status No Sepsis Action Taken by Nursing No Action Required 08/19/24 13:15 08/19/24 13:15 08/19/24 13:18 Temperature Temperature Source Pulse Rate 73 Pulse Rate [Apical] Pulse Rate from SpO2 Sensor 70 Pulse Rhythm [Apical] Respiratory Rate 20 Respiratory Effort / Characteristics Respiratory Depth Blood Pressure 131/79 Blood Pressure [Right Arm] Blood Pressure Mean 92 Blood Pressure Mean [Right Arm] Pulse Oximetry 97 Oxygen Delivery Method Sepsis Recent Fever Within 48 Hours Sepsis New/Unexplained Change in Mental Status Sepsis Action Taken by Nursing 08/19/24 13:28 08/19/24 13:30 08/19/24 14:29 Temperature Temperature Source Pulse Rate 58 L Pulse Rate [Apical] 71 Pulse Rate from SpO2 Sensor 58 L Pulse Rhythm [Apical] Regular Respiratory Rate 16 Respiratory Effort / Characteristics Non-Labored Spontaneous Respiratory Depth Normal Blood Pressure 130/92 Blood Pressure [Right Arm] 126/78 Blood Pressure Mean 97 Blood Pressure Mean [Right Arm] 94 Pulse Oximetry 95 94 Oxygen Delivery Method Room Air Sepsis Recent Fever Within 48 Hours Sepsis New/Unexplained Change in Mental Status Sepsis Action Taken by Nursing Laboratory Data 08/19/24 12:45 08/19/24 14:19 Lab Results 08/19/24 08/19/24 08/19/24 Range/Units 12:45 13:51 14:11 WBC 13.52 H (4.8-10.8) K/ul RBC 4.32 (4.20-5.40) M/uL Hgb 14.5 (12.0-16.0) g/dl Hct 42.2 (37.0-47.0) % MCV 97.7 (80.0-100.0) fL MCH 33.6 (25.0-34.0) pg MCHC 34.4 (32.0-36.0) g/dL RDW Std Deviation 46.9 H (36.4-46.3) fL RDW Coeff of Tammi 13.1 (11.5-14.5) % Plt Count 324 (130-400) K/uL MPV 10.7 (9.4-12.4) fL Immature Gran % (Auto) 0.7 % Neut % (Auto) 64.8 % Lymph % (Auto) 24.9 % [place] % (Auto) 7.9 % Eos % (Auto) 1.0 % Baso % (Auto) 0.7 % Neut # (Auto) 8.78 H (1.40-6.50) K/uL Lymph # (Auto) 3.36 (1.20-3.40) K/uL [place] # (Auto) 1.07 H (0.11-0.59) K/uL Eos # (Auto) 0.13 (0.00-0.50) K/uL Baso # (Auto) 0.09 (0.00-0.20) K/uL Immature Gran # (Auto) 0.09 (0.01-0.20) K/uL Activ Coag Time Kaolin 222 H 205 H (94-140) SECONDS Sodium (136-145) mmol/L Potassium (3.5-5.1) mmol/L Chloride (98-107) mmol/L Carbon Dioxide (21-32) mmol/L Anion Gap (3-11) BUN (6-23) mg/dl Creatinine (0.6-1.2) mg/dl Est Cr Clr Drug Dosing ml/min eGFR BUN/Creatinine Ratio (10-20) Glucose (70-99(Fasting)) mg/dl Estimat Average Glucose 140 mg/dl Hemoglobin A1c 6.5 H (4.5-5.6) % Calcium (8.6-10.3) mg/dl Troponin I High Sens (0-14) pg/ml // Range/Units 14:19 WBC (4.8-10.8) K/ul RBC (4.20-5.40) M/uL Hgb (12.0-16.0) g/dl Hct (37.0-47.0) % MCV (80.0-100.0) fL MCH (25.0-34.0) pg MCHC (32.0-36.0) g/dL RDW Std Deviation (36.4-46.3) fL RDW Coeff of Tammi (11.5-14.5) % Plt Count (130-400) K/uL MPV (9.4-12.4) fL Immature Gran % (Auto) % Neut % (Auto) % Lymph % (Auto) % [place] % (Auto) % Eos % (Auto) % Baso % (Auto) % Neut # (Auto) (1.40-6.50) K/uL Lymph # (Auto) (1.20-3.40) K/uL [place] # (Auto) (0.11-0.59) K/uL Eos # (Auto) (0.00-0.50) K/uL Baso # (Auto) (0.00-0.20) K/uL Immature Gran # (Auto) (0.01-0.20) K/uL Activ Coag Time Kaolin (94-140) SECONDS Sodium 132 L (136-145) mmol/L Potassium 4.0 (3.5-5.1) mmol/L Chloride 100 (98-107) mmol/L Carbon Dioxide 25 (21-32) mmol/L Anion Gap 7 (3-11) BUN 18 (6-23) mg/dl Creatinine 0.95 (0.6-1.2) mg/dl Est Cr Clr Drug Dosing 82.8 ml/min eGFR 69.02 BUN/Creatinine Ratio 18.9 (10-20) Glucose 119 H (70-99(Fasting)) mg/dl Estimat Average Glucose mg/dl Hemoglobin A1c (4.5-5.6) % Calcium 9.4 (8.6-10.3) mg/dl Troponin I High Sens 38.8 H (0-14) pg/ml Administered Medications Sodium Chloride (Nss) 1,000 mls @ 75 mls/hr IV .[id number] [facility] Stop: 08/22/24 14:14 Last Admin: 08/19/24 16:06 Dose: 75 mls/hr Documented By: GPF Miscellaneous (Icu Protocol For Hyperglycemia) 1 each N/A ACHS [facility] Stop: 08/21/24 16:29 Last Admin: 08/19/24 16:31 Dose: Not Given Documented By: AAKASH Discontinued Medications Fentanyl Citrate (Fentanyl Citrate Pf 100 Mcg/2 Ml Vial) Confirm Administered Dose 100 mcg .ROUTE .STK-MED ONE Stop: 08/19/24 13:24 Last Increment: 08/19/24 14:11 Dose: 25 mcg Documented By: ADEN Heparin Sodium (Porcine) (Heparin (Porcine) 1000 Unit/Ml 10 Ml (Ambulatory Analyst Use Only)) Confirm Administered Dose 10,000 units .ROUTE .STK-MED ONE Stop: 08/19/24 13:24 Last Admin: 08/19/24 14:11 Dose: 8,000 units Documented By: ADEN Heparin Sodium/Sodium Chloride (Heparin In Nss Infusion 1000 Unit/500 Ml (2 U/Ml) Bag) Confirm Administered Dose 3,000 units IV .STK-MED ONE Stop: 08/19/24 13:24 Last Admin: 08/19/24 14:12 Dose: 3,000 units Documented By: ADEN Iodixanol (Iodixanol (Visipaque) 320 Mg/Ml 100ml) Confirm Administered Dose 1 ml IV .STK-MED ONE Stop: 08/19/24 13:25 Last Admin: 08/19/24 17:35 Dose: Not Given Documented By: AAKASH Ioversol (Optiray 350) Confirm Administered Dose 1 ml .ROUTE .STK-MED ONE Stop: 08/19/24 13:25 Last Admin: 08/19/24 14:12 Dose: 260 ml Documented By: CHAGO Midazolam HCl (Midazolam Hcl 1 Mg/Ml 2ml Vial) Confirm Administered Dose 2 mg .ROUTE .STK-MED ONE Stop: 08/19/24 13:24 Last Increment: 08/19/24 14:12 Dose: 1 mg Documented By: ADEN Nicardipine HCl (Nicardipine 2,000 Mcg/20 Ml Syr) Confirm Administered Dose 2,000 mcg .ROUTE .STK-MED ONE Stop: 08/19/24 13:25 Last Admin: 08/19/24 14:13 Dose: 2,000 mcg Documented By: CHAGO Nitroglycerin/Dextrose (Nitroglycerin/D5w 100mcg/Ml 20ml Syr) Confirm Administered Dose 2,000 mcg .ROUTE .STK-MED ONE Stop: 08/19/24 13:25 Last Admin: 08/19/24 14:13 Dose: 2,000 mcg Documented By: CHAGO Rosuvastatin Calcium (Rosuvastatin Calcium 10 Mg Tab) 10 mg PO ONE ONE Stop: 08/19/24 14:31 Last Admin: 08/19/24 17:35 Dose: Not Given Documented By: AAKASH Ticagrelor (Ticagrelor 90 Mg Tab) Confirm Administered Dose 180 mg .ROUTE .STK- MED ONE Stop: 08/19/24 14:08 Last Admin: 08/19/24 14:13 Dose: 180 mg Documented By: ADEN Discharge Plan Visit Data Chief Complaint: Heart Alert Stated Complaint: HEART ALERT ED Provider: Kim Parham Discharge Problem: ST elevation (STEMI) myocardial infarction Patient Disposition: Admitted As Inpatient Condition: Critical Discharge Instructions Interventions: ED Discharge Assessment Last Done: 08/19/24 13:25 Discharge Problem: ST elevation (STEMI) myocardial infarction Qualifiers: Involved coronary artery: unspecified coronary artery Qualified Code(s): I21.3 - ST elevation (STEMI) myocardial infarction of unspecified site
[2024-08-19] MEDS: GABAPENTIN 400 MG CAP PO SCH (20:07)
[2024-08-19] MEDS: traZODone HCL 100 MG TAB PO PRN (20:07)
[2024-08-19] MEDS: VENLAFAXINE HCL XR 75 MG CAPXR PO SCH (20:07)
[2024-08-19] MEDS: VENLAFAXINE HCL XR 150 MG CAPXR PO SCH (20:07)
[2024-08-19] MEDS: METOPROLOL TARTRATE 25 MG TAB PO SCH (20:08)
[2024-08-19] MEDS ORDERED: amLODIPine BESYLATE 5 MG TAB PO SCH (21:00)
[2024-08-20 05:02] LABS: BUN Creatinine Ratio 14.8 (10-20); Calcium 9.7 mg/dl (8.6-10.3); Chol HDL Ratio 3.3 (0-5); Creatinine Clr Calc Pharmacy 89.4 ml/min; Magnesium 1.9 mg/dl (1.7-2.4); Potassium 4.2 mmol/L (3.5-5.1)
[2024-08-20 05:21] LABS: Troponin I High Sensitivity 18477.8 pg/ml (0-14)
[2024-08-20] MEDS: LEVOTHYROXINE SODIUM 88 MCG TABLET PO SCH (06:24)
[2024-08-20] MEDS: ASPIRIN 81 MG ECTAB PO SCH (08:42)
[2024-08-20] MEDS: LOSARTAN POTASSIUM 25 MG TAB PO SCH (08:43)
[2024-08-20] MEDS: ROSUVASTATIN CALCIUM 10 MG TAB PO SCH (08:44)
[2024-08-20] MEDS: TICAGRELOR 90 MG TAB PO SCH (08:44)
[2024-08-20] MEDS: MULTIVITAMIN TAB PO SCH (08:44)
[2024-08-20] MEDS: SPIRONOLACTONE 25 MG TAB PO SCH (08:44)
--- NOTE | 2024-08-20 08:44 | Cardiology Consultation ---
Date of Consultation August 20, 2024 Assessment & Plan (1) ST elevation (STEMI) myocardial infarction: (2) Presence of stent in LAD coronary artery: (3) HFrEF (heart failure with reduced ejection fraction): (4) Hypertension: (5) Dyslipidemia, goal LDL below 70: Plan Patient presenting with several hours of chest pain yesterday with findings consistent of anterior STEMI on EKG. Cardiac cath revealing 100% occlusion of the LAD and patient received 3 overlapping REGINA. She tolerated procedure and symptoms improved post intervention. Echo post procedure revealed large anterior wall motion abnormality with LVEF 40-45% HS troponin 38 on arrival, increasing to 18,477 and trending down to 17,277 this morning. Started on guideline directed medical therapies including ASA 81 mg daily, Brilinta 90 mg BID, rosuvastatin 10 mg daily (recently stopped atorvastatin due to myalgias). Dual antiplatelet therapy recommended for at least 1 year, preferably longer given complex interventions per interventionalist. Previously on metoprolol tartrate - Transition to metoprolol succinate 25 mg BID given reduced LVEF. Started losartan 25 mg daily. Likely would benefit from Entresto. As an outpatient she has been on spironolactone 50 mg daily. She has hyponatremia on labs today - reduce dose to 25 mg daily. Repeat BMP tomorrow. Consider Jardiance. Cardiac rehab MTM referral as outpatient to optimize meds as an outpatient as well. Consider Entresto, smoking cessation treatment, and if she fails to tolerated crestor - will likely need PSCK9 inhib. Continue to monitor on telemetry Will follow. Case discussed with Dr. Trevino I spent a total of 60 minutes on the date of service in preparation, delivery, and documentation of the care provided to this patient, excluding any time spent in the performance of separately billed services. Ivanna Shah PA-C Department of Cardiology, [facility] This chart was completed in part utilizing Speech Voice Recognition Software. Grammatical errors, random word insertions, pronoun errors, and incomplete sentences are an occasional consequence of this system due to software limitations, ambient noise, and hardware issues. Any formal questions or concerns about the content, text, or information contained within the body of t his dictation should be directly addressed to the provider for clarification. Supervising Physician Co-Signing Physician Notes I have personally performed a history and physical examination on the patient. I have reviewed the advance practitioner's documentation, and I agree with, and take responsibility for the plan of care. 59-year-old female with anterior ST elevation VT status post drug-eluting stent implantation to the left anterior descending artery. Feeling well today with without recurrent chest discomfort. No dysrhythmia on telemetry. Echocardiogram reveals mildly reduced LV systolic function with a large apical wall motion abnormality with hypokinesis to dyskinesis of the segments. Recommendations: * Continue dual antiplatelet therapy for minimum of 1 year post percutaneous intervention. * Discontinue losartan. * Start Entresto BID this evening. * Reduce spironolactone to 25 mg once daily. * Toprol-XL 25 mg twice daily. * Continue high intensity statin therapy. * Consider addition of Jardiance. * Consider referral to [facility] clinic as outpatient for PCSK9 inhibitor if patient unable to tolerate statin therapy. * Cardiac rehab referral. I spent a total of 40 minutes on the date of service in preparation, delivery, and documentation of the care provided to this patient, excluding any time spent in the performance of separately billed services. Sushant Trevino DO, [facility] History of Present Illness Reason for Consultation: Anterior STEMI [facility] Attending Physician: Dr. Trevino History of Present Illness Patient is a 59 year old female admitted with chest pain yesterday, diagnosed with anterior STEMI with EKG demonstrating ST elevation in V1-V3. Heart alert called and patient taken urgently to cardiac rn lab by [place] interventionalist, Dr. Diaz. Found to have acute 100% occlusion of the LAD just after the first diagonal. She received 3 overlapping REGINA with good results. She had residual disease with ostial 95% stenosis of diagonal, OM1 with 30% stenosis, and 30% mid RCA stenosis. Echo post procedure demonstrates mildly reduced LVEF at 40-45% with large sized apical, septal and anteroseptal wall motion abnormality. She was started on appropriate medical therapies post cath with ASA, Brilinta, statin, losartan, BB. History includes: 1. 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 Stovall many years ago. No arrhythmias induced. No ablation performed. [place]ed [place] [address] Morillo for symptomatic PVC's. 2. HTN 3. Dyslipidemia 4. DM 5. tobacco abuse 6. Spinal stenosis 7. RLS At time of consult, patient feeling well. She had a few "twinges" of chest pain overnight but nothing severe and resolved quickly. No SOB. No orthopnea, PND or edema. No arrhythmias on telemetry. Patient had been on flecainide for years, and stopped yesterday due to diagnosis of CAD. Allergies Allergy/AdvReac Type Severity Reaction Status Date / Time latex Allergy Mild SKIN Verified 12/18/22 09:41 REDNESS/ITCHING adhesive Allergy Unknown rash Verified 12/18/22 09:41 nickel Allergy Unknown contact Verified 12/18/22 09:41 dermatitis cefdinir [From Omnicef] AdvReac Intermediate diarrhea Verified 12/18/22 09:41 Home Medications Medication Instructions Recorded Confirmed Type albuterol sulfate 90 mcg/actuation 2 inha inhalation QID PRN 04/17/18 08/19/24 Rx aerosol inhaler shortness of breath or wheezing #1 g amlodipine 10 mg tablet (Norvasc) 10 mg PO HS 06/12/22 08/19/24 History cholecalciferol (vitamin D3) 1,250 1,250 mcg PO .weekly 06/12/22 08/19/24 History mcg (50,000 unit) tablet metformin 500 mg tablet 500 mg PO PM 06/12/22 08/19/24 History multivitamin 1 tab PO DAILY 06/12/22 08/19/24 History flecainide 50 mg tablet 100 mg PO DAILY 07/27/22 08/19/24 History trazodone 50 mg tablet 100 mg PO HS PRN Insomnia 07/27/22 08/19/24 History umeclidinium 62.5 mcg-vilanterol 1 inh inhalation QAM 07/27/22 08/19/24 History 25 mcg/actuation powdr for inhalation (Anoro Ellipta) celecoxib 200 mg capsule (Celebrex) 200 mg PO DAILY 12/18/22 08/19/24 History gabapentin 400 mg tablet 400 mg PO TID 12/18/22 08/19/24 History metoprolol tartrate 50 mg tablet 50 mg PO 5XD 12/18/22 08/19/24 History spironolactone 50 mg tablet 50 mg PO DAILY #30 tabs 12/18/22 08/19/24 Rx (Aldactone) levothyroxine 88 mcg tablet 88 mcg PO DAILY #30 tabs 12/28/22 08/19/24 Rx flecainide 50 mg tablet 50 mg PO PM 08/19/24 08/19/24 History venlafaxine 150 mg 150 mg PO PM 08/19/24 08/19/24 History capsule,extended release 24 hr venlafaxine 75 mg tablet,extended 75 mg PO PM 08/19/24 08/19/24 History release 24 hr Patient History Medical History Tobacco use disorder Irritable bowel syndrome without diarrhea Frequent PVCs lost to f/u with [facility] cardio COPD (chronic obstructive pulmonary disease) History of diverticulitis Sinus congestion CHRONIC Sinus drainage CHRONIC- POST NASAL DRIP Surgical History Hx of oral surgery (08/02/22) p Excision of Mass Right Cheek (Large Fibroma), Excision of Radiolucent Lesion Right Floor of Sinus and Maxilla,(Right), closure of large lateral sinus wall opening with advancement flap - Lewis Castillo DMD s Extraction of Teeth 1, 2, 3, 15, 20(Not Applicable) - Lewis Castillo DMD Hx of abdominal surgery ABDOMINAL FISTULA REPAIR History of esophagogastroduodenoscopy (EGD) History of cardiac radiofrequency ablation FOR PALPITATIONS H/O excision of mass History of gastric surgery H/O hernia repair x2 S/P cholecystectomy History of surgery vertical banded gastroplasty H/O abdominoplasty Previous section H/O knee surgery Family History Aunt Breast cancer Mother Diabetes Heart disease Hypertension Sister Diabetes Stroke Father Heart disease Grandmother Stroke Other Colorectal cancer No pertinent family history Social History Smoking Status: Current every day smoker Tobacco Type: Cigarettes packs per day: 1; Cigarettes Per Day: 5 cig per day; Second Hand Exposure: No; Do You Dip or Chew Tobacco: No; Hx Alcohol Use: No Hx Substance Use: No Preferred Language: Qatari Communication Ability: Effective Visual Impairment: No Limitations Verification Rep Required: No Beliefs That Will Affect Care: None marital status: Current Living Situation: Family current occupational status: student How many Children do You have: 1 Feels Safe at Home: Yes Safety Concerns: Feels Safe At This Time Diet: diabetic during the past year weight has: decreased > 10 lbs Assistive Devices: None Review of Systems Review of Systems: All systems reviewed & are unremarkable except as noted in HPI & below Physical Exam Constitutional: WD/WN, vitals as above Neck: trachea midline, no thyromegaly Respiratory: normal respiratory effort, lungs clear to auscultation Cardiovascular: Rate/Rhythm: regular rate and regular rhythm Heart Sounds: normal S1 and normal S2; no murmur Vessels: no JVD Extremities: no edema Gastrointestinal (Abdomen): normal bowel sounds, soft, nontender, no hepatosplenomegaly Musculoskeletal: no cyanosis or clubbing, extremities motor strength 5/5 Neurologic: PERRL, EOMI, accommodation nl, no face palsy, no dysarthria Psychiatric: A+Ox3, euthymic affect Results & Data Vital Signs (Past 12 Hours) Vital Signs Temp Pulse Resp BP Pulse Ox 08/20/24 02:12 63 16 97 08/20/24 01:48 76 16 95 08/20/24 01:30 70 14 93 08/20/24 01:15 72 17 96 08/20/24 01:00 134/98 08/20/24 01:00 134/98 08/20/24 01:00 134/98 08/20/24 01:00 61 20 96 08/20/24 00:03 65 17 96 08/20/24 00:00 64 08/20/24 00:00 36.5 C 08/20/24 00:00 157/104 H 08/20/24 00:00 157/104 H 08/19/24 23:57 73 13 96 08/19/24 23:54 82 20 97 08/19/24 23:30 65 18 96 08/19/24 23:15 69 16 95 08/19/24 23:11 129/89 08/19/24 23:11 129/89 08/19/24 23:11 129/89 08/19/24 23:09 64 15 95 08/19/24 22:51 72 18 97 08/19/24 22:33 76 19 96 08/19/24 22:00 129/80 08/19/24 22:00 71 15 96 08/19/24 21:45 58 L 21 94 08/19/24 21:33 62 15 96 08/19/24 21:15 61 20 95 08/19/24 21:03 57 L 18 97 08/19/24 21:00 126/86 08/19/24 21:00 126/86 Laboratory Results Cardiac Enzymes 08/19/24 08/20/24 Range/Units 14:19 04:29 Troponin I High Sens 38.8 H 31003.8 H* D (0-14) pg/ml Lipids 08/20/24 Range/Units 04:29 Triglycerides 128 (0-150) mg/dl Cholesterol 156 (0-200) mg/dl HDL Cholesterol 48 mg/dl Cholesterol/HDL Ratio 3.3 (0-5) CBC 08/19/24 Range/Units 12:45 WBC 13.52 H (4.8-10.8) K/ul RBC 4.32 (4.20-5.40) M/uL Hgb 14.5 (12.0-16.0) g/dl Hct 42.2 (37.0-47.0) % Plt Count 324 (130-400) K/uL Neut # (Auto) 8.78 H (1.40-6.50) K/uL Lymph # (Auto) 3.36 (1.20-3.40) K/uL [place] # (Auto) 1.07 H (0.11-0.59) K/uL Eos # (Auto) 0.13 (0.00-0.50) K/uL Baso # (Auto) 0.09 (0.00-0.20) K/uL Comprehensive Metabolic Panel 08/19/24 08/20/24 Range/Units 14:19 04:29 Sodium 132 L 131 L (136-145) mmol/L Potassium 4.0 4.2 (3.5-5.1) mmol/L Chloride 100 100 (98-107) mmol/L Carbon Dioxide 25 22 (21-32) mmol/L BUN 18 13 (6-23) mg/dl Creatinine 0.95 0.88 (0.6-1.2) mg/dl Glucose 119 H 116 H (70-99(Fasting)) mg/dl Calcium 9.4 9.7 (8.6-10.3) mg/dl Intake and Output 08/19/24 08/20/24 08/20/24 22:59 06:59 14:59 Intake Total 745 / 845 100 / 845 Balance 745 / 845 100 / 845 Intake: IV 185 / 185 Sodium Chloride 0.9% 1,000 ml @ 185 / 185 75 mls/hr IV .[id number] MELANI Rx#: [id number] Oral 560 / 660 100 / 660 Other: # Unmeasured Voids 1 1 Weight 116.8 kg 117.1 kg Weight Measurement Method Built in Bedscale Built in [facility] Diagnostic Findings Telemetry reviewed: NSR in the 70's. Rare PVCs. No concerning arrhythmias EKG reviewed from this morning 08/20/24: NSR with septal infarct T wave abnormality in anterior leads, consistent with evolving VT EKG reviewed from 08/19/24: NSR Low voltage QRS Improved anterior T wave abnormality (done post cath) EKG reviewed from 08/19/24: NSR Low voltage QRS ST elevation in V1-V3 concerning for anterior STEMI Echo report reviewed from 08/19/24: No prior study for comparison LVEF is mildly reduced at 40-45% Large sized apical, septal, and anteroseptal wall motion abnormality with hypokinesis to dyskinesis of the segments Grade I diastolic dysfunction Aortic valve sclerosis without stenosis 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 0% residual stenosis post PCI Medications Administered Current Inpatient Medications Acetaminophen (Acetaminophen 325 Mg Tab) 650 mg PO Q4H PRN PRN Reason: MILD Pain (Scale 1,2,3) Stop: 09/18/24 14:13 Aspirin (Aspirin 81 Mg Ectab) 81 mg PO QAM [facility] Stop: 09/19/24 08:59 Last Admin: 08/20/24 08:42 Dose: 81 mg Atropine Sulfate (Atropine Sulfate 0.1 Mg/Ml 10ml Syr) 0.5 mg IV ONCE PRN PRN Reason: bradycardia/hypotension Stop: 09/18/24 14:13 Gabapentin (Gabapentin 400 Mg Cap) 400 mg PO TID [facility] Stop: 09/18/24 20:59 Last Admin: 08/20/24 08:42 Dose: 400 mg Levothyroxine Sodium (Levothyroxine Sodium 88 Mcg Tablet) 88 mcg PO DAILYBB [facility] Stop: 09/19/24 06:29 Last Admin: 08/20/24 06:24 Dose: 88 mcg Losartan Potassium (Losartan Potassium 25 Mg Tab) 25 mg PO QAM [facility] Stop: 09/19/24 08:59 Last Admin: 08/20/24 08:43 Dose: 25 mg Metoprolol Succinate (Metoprolol Succ 25mg Ext Rel Tab) 25 mg PO BID [facility] Stop: 09/19/24 08:59 Miscellaneous (Icu Protocol For Hyperglycemia) 1 each N/A ACHS [facility] Stop: 08/21/24 16:29 Last Admin: 08/20/24 08:40 Dose: 1 each Multivitamins (Multivitamin Tab) 1 tab PO QAM [facility] Stop: 09/19/24 08:59 Last Admin: 08/20/24 08:44 Dose: 1 tab Ondansetron HCl (Ondansetron Inj 2 Mg/Ml 2 Ml Vial) 4 mg IV Q6H PRN PRN Reason: Nausea And Vomiting Stop: 09/18/24 14:13 Rosuvastatin Calcium (Rosuvastatin Calcium 10 Mg Tab) 10 mg PO QAM [facility] Stop: 09/19/24 08:59 Last Admin: 08/20/24 08:44 Dose: 10 mg Spironolactone (Spironolactone 25 Mg Tab) 50 mg PO DAILY [facility] Stop: 09/19/24 08:59 Last Admin: 08/20/24 08:44 Dose: 50 mg Ticagrelor (Ticagrelor 90 Mg Tab) 90 mg PO BID [facility] Stop: 09/19/24 08:59 Last Admin: 08/20/24 08:44 Dose: 90 mg Trazodone HCl (Trazodone Hcl 100 Mg Tab) 100 mg PO HS PRN PRN Reason: Insomnia Stop: 09/18/24 16:41 Last Admin: 08/19/24 20:07 Dose: 100 mg Umeclidinium/Vilanterol (Umeclidinium/Vilanterol 62.5/25mcg 7 Puffs/Inhaler) 1 puffs INH QAM [facility]ELANI Stop: 09/19/24 08:59 Last Admin: 08/20/24 08:45 Dose: 1 puffs Venlafaxine HCl (Venlafaxine Hcl Xr 150 Mg Capxr) 150 mg PO PM [facility]ELANI Stop: 09/18/24 20:59 Last Admin: 08/19/24 20:07 Dose: 150 mg Venlafaxine HCl (Venlafaxine Hcl Xr 75 Mg Capxr) 75 mg PO PM MELANI Stop: 09/18/24 20:59 Last Admin: 08/19/24 20:07 Dose: 75 mg (1) ST elevation (STEMI) myocardial infarction Involved coronary artery: unspecified coronary artery Qualified Code(s): I21.3 - ST elevation (STEMI) myocardial infarction of unspecified site
[2024-08-20] MEDS: UMECLIDINIUM/VILANTEROL 62.5/25MCG 7 PUFFS/INHALER INH SCH (08:45)
[2024-08-20] MEDS: METOPROLOL SUCC 25MG EXT REL TAB PO SCH (09:29)
--- NOTE | 2024-08-20 14:14 | Hospitalist Progress Note ---
Date of Service August 20, 2024 Assessment & Plan (1) ST elevation (STEMI) myocardial infarction: Plan Patient is 59 year old female with PMHx significant for DM II, HTN, PVC's on Flecainide, COPD, hypothyroidism, depression, chronic back pain, RLS, tobacco use, obesity who presented to the ER with anterior neck pain, chest pain with radiation to the back and RUE pain. En route given 324mg aspirin and 3 SL nitro and fentanyl by EMS and was made a heart alert. 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 She is s/p PCI of the LAD with implantation of 3 overlapped drug-eluting stents. STEMI EKG with ST elevation in the setting of chest pain hs-Trop elevation from 38 to 18,477.8 to 17,277.3 Resting echo with EF 40-45%, large apical, septal anteroseptal wall motion abnormalities with hypokinesis to dyskinesis, Grade 1 diastolic dysfunction S/P cardiac cath on 08/19/24. Report from Interventional Cardiology noted the following: "...1. Severe multivessel coronary disease involving the LAD and PDA. LAD is the culprit. 2. Successful PCI of the LAD with implantation of 3 overlapped drug-eluting stents. 3. Patient will be on dual antiplatelet therapy for at least 1 to 2 years (preferably indefinitely secondary to extensive stenting). 4. Guideline directed medical therapy for secondary prevention of coronary disease has been initiated. This includes low-dose aspirin, high intensity statin therapy, beta-ld, and ARB (given diabetes). Additional titration of regimen to achieve target heart rate and blood pressure... 5. FLECAINIDE has been discontinued with newly identified CAD..." ICU for close telemetry monitoring Continue Aspirin 81mg, Brilinta 90mg BID, Toprol 25mg BID, rosuvastatin 10mg daily with Entresto 26/24, spironolactone 25mg Cardiology consulted, appreciate recs. Recommended/stated the following: "...Continue dual antiplatelet therapy for minimum of 1 year post percutane ous intervention. Discontinue losartan. Start Entresto 26/24 BID this evening. Reduce spironolactone to 25 mg once daily. Toprol-XL 25 mg twice daily. Continue high intensity statin therapy. Consider addition of Jardiance. Consider referral to [facility] clinic as outpatient for PCSK9 inhibitor if patient unable to tolerate statin therapy. Cardiac rehab referral..." Continue to monitor PVC's History PVCs, has seen [facility] cardiology in past. Was on Flecainide and metoprolol tartrate 50mg 5 times a day Cardiology consulted as above -continue Toprol 25mg BID -Flecainide discontinued Continue to monitor on telemetry Hyponatremia Sodium of 132 on admission, downtrending Appears mild, chronic Urine electrolytes ordered for further workup Consider Nephrology input inpt if worsening Type 2 diabetes mellitus A1c: 6.5 on 08/11/24 Hold home metformin Novolog sliding scale per protocol Hypertension Previously was on home amlodipine 10mg daily, metoprolol tartrate 50mg 5x day, spironolactone Per Cardiology as noted above: Discontinue amlodipine Continue with Toprol XL 25mg BID Continue spironolactone 25mg daily Continue entresto at BID dosing Continue to monitor BP COPD (chronic obstructive pulmonary disease) No signs exacerbation Continue home inhalers Hypothyroidism TSH: 0.87 on 08/11/24 Continue levothyroxine Depression Continue venlafaxine Tobacco use disorder Was smoking 1.5ppd and over past 5 months is now down to smoking 5 cigarettes a day Encourage cessation Pt with adhesive allergy- consider nicotine gum while hospitalized to help with cessation Diet: HH/DMII DVT Prophylaxis: SCDs Dispo: PT/OT ordered for recs, likely home once medically stable Admission and Anticipated Discharge Date Admission Date: August 19, 2024 Subjective Pt was seen in the ICU sitting in a chair near her bed She states she gets the occasional chest pain twinge but nothing like what brought her in Denied SOB or palpitations at the time of exam. Anxious for discharge but notes she was advised she would need a few more days Review of Systems Review of Systems: All systems reviewed & are unremarkable except as noted in Subjective Physical Exam Physical Exam: General: Alert, oriented. No acute distress Skin: No noted rashes or bruises Psych: Appropriate mood and affect HEENT: NC/AT CV: RRR Resp: Breath sounds clear bilaterally, no increased effort of breathing Abdomen: Soft, nontender Extremities: No edema in lower extremities bilaterally. Results & Data Results & Data Vital Signs (Past 12 Hours) Vital Signs Temp Pulse Resp BP Pulse Ox 08/20/24 11:00 67 25 H 126/84 92 08/20/24 10:12 69 24 97 08/20/24 10:00 131/89 08/20/24 09:51 73 16 97 08/20/24 09:00 124/83 08/20/24 09:00 68 17 96 08/20/24 08:00 119/73 08/20/24 08:00 79 12 95 08/20/24 08:00 36.4 C L 08/20/24 07:06 70 20 95 08/20/24 07:00 152/83 H 08/20/24 02:12 63 16 97 08/20/24 01:48 76 16 95 08/20/24 01:30 70 14 93 (1) ST elevation (STEMI) myocardial infarction Involved coronary artery: unspecified coronary artery Qualified Code(s): I21.3 - ST elevation (STEMI) myocardial infarction of unspecified site
[2024-08-20] MEDS: ACETAMINOPHEN 325 MG TAB PO PRN (14:29)
[2024-08-20 14:33] LABS: Basophils # (auto) 0.08 K/uL (0.00-0.20); Basophils % (auto) 0.6 %; Eosinophils # (auto) 0.16 K/uL (0.00-0.50); Eosinophils % (auto) 1.2 %; Hemoglobin 14.7 g/dl (12.0-16.0); Immature Granulocytes # (auto) 0.09 K/uL (0.01-0.20); Immature Granulocytes % (auto) 0.7 %; Lymphocytes # (auto) 1.76 K/uL (1.20-3.40); Lymphocytes % (auto) 13.2 %; Mean Corpuscular Hemoglobin 33.4 pg (25.0-34.0); Mean Corpuscular Hgb Conc 35.9 g/dL (32.0-36.0); Mean Corpuscular Volume 93.2 fL (80.0-100.0); Mean Platelet Volume 10.5 fL (9.4-12.4); Monocytes # (auto) 1.06 K/uL (0.11-0.59); Monocytes % (auto) 7.9 %; Neutrophils % (auto) 76.4 %; Platelet Count 281 K/uL (130-400); RDW Coefficient of Variation 12.8 % (11.5-14.5); RDW Standard Deviation 44.1 fL (36.4-46.3); White Blood Count 13.35 K/ul (4.8-10.8)
--- OUTSIDE RECORDS SUMMARY | 2024-08-20 15:43 | External Medical Summary | Summary of Care ---
Author Name Unknown Organization [facility] Address [address] [facility] [place] [address] Phone [phone] Care Team Providers Care Supervisor Ore Dressing Name Role Phone Re Durham PA-C Primary Care Provider [phone] Reason for Visit * Reason Comments Outpatient Testing Encounter Details Date Type Department Care Team (Late st Contact Info) Description 08/11/2024 2:50 PM EDT [facility] [address] [facility] [place] [phone] [facility] [address] [facility] [place], [place] [id number] Riboflavin deficiency*; Encounter for long-term (current) use of medications; Type 2 diabetes mellitus with diabetic cataract, unspecified whether traction power engineer insulin use ([facility]); Glucocorticoid-remediab le aldosteronism ([facility]); HTN, goal below 140/90; COPD, group B, by GOLD 2017 classification ([facility]); Restless legs syndrome; Episodic cluster headache, not intractable; B12 deficiency Allergies Active Allergy Reactions Criticality Noted Date Comments Latex Other (Please comment) 01/28/2020 Skin irritation Nickel Edema airway,Itching High 01/16/2008 Cefdinir 06/15/2020 diarrhea documented as of this encounter (statuses as of 08/19/2024) Medications Multi-Vitamins Oral Tablet Take 1 Tablet by mouth in the morning. Active Potassium 99 MG Oral Tablet Take 1 Tablet by mouth in the morning. Active Cyanocobalamin 1000 MCG Oral Tablet (CYANOCOBALAMIN) Take 1 Tablet by mouth in the morning. Active Probiotic Acidophilus BioBeads Oral Capsule Take 1 Capsule by mouth. Once daily Active Varenicline Tartrate 1 MG Oral TabletIndications: Tobacco use One half tab daily in the evening for 3 days then half tab twice a day for 4 days, then whole twice daily therafeter 180 Tablet 1 01/10/20 23 Active Azelastine HCl 0.1 % Nasal Solution (Astelin)Indicatio ns:Nasal congestion Administer 1 Pinch into nostril in the morning and 1 Pinch before bedtime. 90 mL 1 3 3:20 PM EST 03/15/20 23 Active Clobetasol Propionate 0.05 % External Cream (Temovate)Indicati ons:Dermatitis Apply to affected area apply topically to affected area twice a day for UP TO 2 weeks 60 g 1 3 3:20 PM EST 03/15/20 23 Active Diclofenac Sodium 1 % External Gel (Voltaren)Indicati ons:Pain in joint of right shoulder Apply topically to right shoulder 4 times a day 200 g 1 3 3:20 PM EST 03/15/20 23 Active Montelukast Sodium 10 MG Oral Tablet (Singulair)Indicat ions:Chronic maxillary sinusitis Take 1 Tablet by mouth in the morning. 30 Tablet 04/26/19 24 Active Additional Information Patient not taking.Reported on 08/11/2024 Spironolactone 50 MG Oral Tablet (Aldactone) Take 1 Tablet by mouth in the morning. 90 Tablet 2 4 1:01 PM EDT 07/15/19 24 Active Ondansetron HCl 8 MG Oral Tablet (Zofran)Indication s:Chronic nausea take 1/2 tablet by mouth every 8 hours if needed for nausea 30 Tablet 1 4 3:50 PM EDT 10/14/19 24 Active Aspirin 81 MG Oral Tablet Delayed Release (Aspirin 81) Take 1 Tablet by mouth in the morning. Active Albuterol Sulfate HFA 108 (90 Base) MCG/ACT Inhalation Aerosol Solution Inhale 2 Puffs by mouth every 6 hours as needed for Wheezing or Shortness of Breath. 20.1 g 03/02/20 24 Active Flecainide Acetate 50 MG Oral Tablet (Tambocor)Indicati ons:PVC (premature ventricular contraction),Palpi tations,Frequent PVCs take 2 tablets by mouth every morning and 1 tablet by mouth every evening 270 Tablet 1 5 12:09 PM EDT 04/28/19 25 Active Levothyroxine Sodium 88 MCG Oral Tablet (Levoxyl) Take 1 Tablet by mouth in the morning. 90 Tablet 1 5 8:43 AM EDT 04/28/19 25 Active Venlafaxine HCl ER 75 MG Oral Capsule Extended Release 24 Hour (Effexor XR)Indications:Mil d episode of recurrent major depressive disorder (HCC),Major depressive disorder with single episode, remission status unspecified take 1 capsule by mouth at bedtime ALONG WITH 150MG capsule FOR A TOTAL OF 225MG. DO NOT CUT,CRUSH OR CHEW 90 Capsule 5 6:36 AM EDT 04/28/19 25 Active Metoprolol Tartrate 50 MG Oral Tablet (Lopressor)Indicat ions:HTN, goal below 140/90 take 1 tablet by mouth FIVE TIMES A DAY 450 Tablet 3 5 6:04 PM EDT 05/02/19 25 Active traZODone HCl 50 MG Oral Tablet (Desyrel) Take 2 Tablets by mouth at bedtime as needed for Sleep. 180 Tablet 3 5 11:42 AM EDT 05/13/19 25 Active metFORMIN HCl 500 MG Oral Tablet (Glucophage)Indica tions:Type 2 diabetes mellitus with diabetic cataract, unspecified whether penitentiary insulin use ([facility]),Type 2 diabetes mellitus with hemoglobin A1c goal of less than 7.0% ([facility]) Take 1 Tablet by mouth daily with breakfast. 30 Tablet 5 5 4:46 PM EST 05/21/19 25 Active Anoro Ellipta 62.5-25 MCG/ACT Inhalation Aerosol Powder Breath Activated (umeclidinium-peña nterol) Inhale 1 Puff by mouth in the morning. 180 Each 3 5 7:22 AM EST 05/29/19 25 Active amLODIPine Besylate 10 MG Oral Tablet (Norvasc)Indicatio ns:HTN, goal below 140/90 Take 1 Tablet by mouth at bedtime. 90 Tablet 3 5 6:39 PM EDT 06/22/19 25 Active Benzonatate 100 MG Oral Capsule (Tessaljacqueline Ramires)Indications :Bronchitis, complicated,Histor y of influenza Take 1 Capsule by mouth 3 times a day as needed for Cough. 50 Capsule 06/30/19 25 Active Vitamin D (Ergocalciferol) 1.25 MG (97174 UT) Oral Capsule (Drisdol)Indicatio ns:Vitamin D deficiency take 1 capsule by mouth every week 12 Capsule 1 5 5:52 PM EDT 07/21/19 25 Active Celecoxib 200 MG Oral Capsule (CeleBREX)Indicati ons:Gastric fistula,Primary osteoarthritis of both shoulders,Primary osteoarthritis of both knees Take 1 Capsule by mouth in the morning. 90 Capsule 1 5 11:43 AM EDT 07/21/19 25 Active Venlafaxine HCl ER 150 MG Oral Capsule Extended Release 24 Hour (Effexor XR) take 1 capsule by mouth every morning. DO NOT CRUSH, CHEW, AND/OR DIVIDE 90 Capsule 1 5 11:43 AM EDT 07/21/19 25 Active Gabapentin 600 MG Oral Tablet (Neurontin)Indicat ions:Leg weakness, bilateral,Degenera tion of intervertebral disc of lumbar region with discogenic back pain Take 1 Tablet by mouth in the morning and 1 Tablet at noon and 1 Tablet before bedtime. 270 Tablet 1 08/12/19 25 Active Riboflavin 400 MG Oral TabletIndications: Episodic cluster headache, not intractable,Ribofl luis e deficiency Take 1 Tablet by mouth in the morning. 100 Tablet 3 08/19/19 25 Active tiZANidine HCl 2 MG Oral Tablet (Zanaflex) Take 1 Tablet by mouth daily as needed for Muscle spasms. 40 Tablet 1 01/31/20 24 025 Discontin ued(Refil l) documented as of this encounter (statuses as of 08/19/2024) Active Problems Problem Noted Date Diagnosed Date Other spondylosis with radiculopathy, lumbar reg ion 04/28/2024 Food insecurity 12/16/2023 Overview: Per [facility] Protocol Restless legs syndrome 04/12/2023 Assessment & Plan (08/11/2024 2:16 PM EDT): Orders: THYROID ANTIBODY AND TPO ANTIBODY; Future Glucocorticoid-remediable aldosteronism 04/12/19 Metabolic syndrome 04/12/2023 Type 2 diabetes mellitus with diabetic cataract 01/09/2023 Assessment & Plan (08/11/2024 2:16 PM EDT): Orders: DIABETIC EYE EXAM COPD, group B, by GOLD 2017 classification 09/17 Overview: Per COPD GOLD Classification Type 2 diabetes mellitus without complication Age-related nuclear cataract, bilateral 08/29/19 23 Major depressive disorder with single episode PVC (premature ventricular contraction) 02/23/20 21 Body mass index (BMI) of 40.0 to 44.9 in adult 1 04/21/2016 Overview: Per Obesity protocol #1 History of vitamin D deficiency 01/23/2017 Mild episode of recurrent major depressive disor sean 01/23/2017 HTN, goal below 140/90 04/15/2014 Generalized osteoarthritis 04/15/2014 Tobacco use disorder 06/11/2006 documented as of this encounter (statuses as of 08/19/2024) Resolved Problems Problem Noted Date Diagnosed Date Resolved Date Chronic obstructive pulmonary disease 02/15/2022 09/20/2022 Overview: Per COPD GOLD Classification Palpitations 02/22/2021 02/22/2021 Food insecurity 11/14/2020 02/22/2022 Overview: Per [facility] Protocol Prediabetes 05/21/2017 09/20/2022 Overview: Per Prediabetes protocol #1 Chronic rhinitis 06/04/2014 01/23/2017 Right hip pain 06/04/2014 01/23/2017 Enthesopathy of hip 06/04/2014 01/24/20 17 Hip mass 03/19/2013 01/23/2017 Lipoma of skin 02/25/2013 01/23/2017 Obesity, Class III, BMI 40-4 9.9 (morbid obesity) 10/29/2012 01/23/2017 Incisional hernia 10/29/2012 01/23/2017 Abdominal pain, right lower quadrant 08/27/2006 01/23/2017 Chronic sinusitis 06/11/2006 01/23/2017 CHRONIC TOBACCO MUCOSITIS 06/11/2006 Headache 06/11/2006 01/23/2017 Overview (06/29/2015): ICD-10 update of inactive term Nausea 06/11/2006 01/23/2017 Overview (01/29/2017): ICD-10 update of inactive term DIARRHEA 06/11/2006 01/23/2017 PLANTAR FIBROMATOSIS 09/14/2005 017 ADVANCE DIRECTIVE INFORMATION 12/27/2004 01/23/2017 Overview (12/27/2004): No, Advance Directive brochure offered , patient declined. documented as of this encounter (statuses as of 08/19/2024) Immunizations Name Administration Dates Next Due Pneumococcal Polysaccharide PPV23 (Pneumovax) Seasonal Influenza Vac., MDV, IM, 0.5 mL (Fluzon e) 02/06/2007 Seasonal Influenza, PF, 6 M & above, IM , (FluLaval or Fluzone) 01/07/2018,01/23/2017 TD, Preservative Free 05/31/2005 05/31/2015 Zoster Vaccine Recombinant (Shingrix) 07/06/2020 ,06/05/2019 08/05/2019 documented as of this encounter Social History Tobacco Use Types Packs/Day Years Used Date Smoking Tobacco: Every Day Cigarettes 2 42 Smokeless Tobacco: Never Comments:09/22/21 currently smoking 10 cig/day Alcohol Use Standard Drinks/Week Comments No 0 (1 standard drink = 0.6 oz pur e alcohol) PHQ-2 Answer Date Recorded PHQ Adult Total Score 16 08/28/2022 Hunger Vital Sign Answer Date Recorded Within the past 12 months, y ou worried that your food would run out before you got the money to buy more. Often true 07/16/19 25 Within the past 12 months, t he food you bought just didn't last and you didn't have money to get more. Often true 07/15/2024 Childcare Answer Date Recorded Do you feel overwhelmed with taking care of a child, family member or friend? No 07/15/2024 Does your family need help f inding childcare? (Household - for ages 0-17 years) Not on file 07/15/2024 Clothing Answer Date Recorded Have you been unable to get clothing when it was really needed? No 07/15/2024 Is your family able to get c lothes or diapers when needed? (Household - for ages 0-17 years) Not on file 07/15/2024 Personal Safety Answer Date Recorded Do you feel unsafe or have concerns for your saf ety? No 07/15/2024 Do you have concerns for you r family's safety? (Household - for ages 0-17 years) Not on file 07/15/2024 Utilities Answer Date Recorded Do you have trouble paying y our heating, water, or electric bill? No 07/15/2024 Is your family able to pay t he heat, water, or electric bill? (Household - for ages 0-17 years) Not on file 07/15/2024 Does your family have access to good internet? (Household - for ages 0-17 years) Not on file 07/15/2024 Employment Status Answer Date Recorded Are you unemployed or without regular income? Ye s 07/15/2024 Does the household have a re gular source of income? (Household - for ages 0-17 years) Not on file 07/15/2024 Social Connections Answer Date Recorded How often do you feel lonely or isolated from those around you? Sometimes 07/15/2024 Financial Resource Strain Answer Date R ecorded Do you have any trouble payi ng for your medications, or do you think you might in the future? No 07/15/2024 Does your family have troubl e paying for medicine? (Household - for ages 0-17 years) Not on file 07/15/2024 Transportation Needs Answer Date Record ed Do you have trouble getting a ride to medical visits or work? (Adult - for ages 18 years and over) Not on file 07/15/2024 Does your family have a hard time getting a ride to doctors visits? (Household - for ages 0-17 years) Not on file 07/15/2024 Has lack of transportation k ept you from medical appointments, meetings, work, or from getting things needed for daily living? Check all that apply. Yes, it has kept me from medical appointments;Yes, it has kept me from non-medical meetings, appointments, work, or from getting things that I need 07/15/2024 Do you (or your family) have trouble finding or paying for a ride (transportation)? (Household - for ages 0-17 years) Not on file 07/15/2024 Housing Stability Answer Date Recorded Do you currently live in a s helter or have no steady place to sleep at night? No 07/15/2024 Do you think you are at risk of becoming homeless? (Adult - for ages 18 years and over) Not on file 07/15/2024 Does your family worry about paying for your home or becoming homeless? (Household - for ages 0-17 years) Not on file 0 07/15/2024 Are you homeless or worried that you might be in the future? No 07/15/2024 Are you (or your family) shorty eless or worried that you might be in the future? (Household - for ages 0-17 years) Not on file Food Insecurity Answer Date Recorded Do you need food for this week? No 11/26/2023 Are you able to get enough f ood for your family? (Household - for ages 0-17 years) Not on file 11/26/2023 Does your family need food t his week? (Household - for ages 0-17 years) Not on file 11/26/2023 Do you always have enough fo od for your family? (Household - for ages 0-17 years) Not on file 11/26/2023 Food Insecurity Answer Date Recorded Within the past 12 months, y ou worried that your food would run out before you got the money to buy more. Often true 07/16/19 25 Within the past 12 months, t he food you bought just didn't last and you didn't have money to get more. Often true 07/15/2024 Do you need food for this week? 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 * Result Encounter Note - Vineet Terry RPh - 08/14/2024 4:11 PM EDT Patient message 08/12 documented in this encounter Plan of Treatment Upcoming Encounters Date Type Department Care Team (Late st Contact Info) Description 08/29/2024 7:30 AM EDT Imaging Radiology [address] [place] [phone] 02/18/2025 8:20 AM EST Office Visit [facility] [address] [facility] [place] [phone] Re Durham PA-C [address] [facility] [place] [id number] Scheduled Orders Name Type Priority Associated Diagnoses Orde r Schedule VITAMIN B2 (RIBOFLAVIN) Lab Routine Riboflavin deficiency Expected: 11/18/2024, Expires: 08/18/2025 Scheduled Procedures Name Priority Associated Diagnoses Date/Ti me COLONOSCOPY FLEXIBLE PROXIMA L DIAGNOSTIC Recall Screen for colon cancer Chronic diarrhea Health Maintenance Due Date Last Done Comments Depression Monitoring 1977 Hepatitis B Vaccine (1 of 3 - 19+ 3-dose series) 1984 HPV/Co-Test 1995 Mammogram 2005 DTap/Tdap Vaccines (1 - Tdap) 06/01/2005 05/31/2005 Colonoscopy 2010 Fecal Occult Blood Test 2010 Sigmoidoscopy 2010 Lung Cancer Screening 2015 Pneumococcal Vaccine: 50+ Years (2 of 2 - PCV) 01/23/2018 01/23/2017 Cervical Cancer Screening 01/24/2020 Pap Smear 01/24/2020 01/23/2017, 01/06, 05/31/2005, Additional history exists Diabetic Eye Exam 12/08/2021 12/08/2020, , 06/03/2014 Cologuard 12/31/2021 12/31/2018, 12/16/2018 Colorectal Cancer Screening 12/31/2021 *COPD SEVERITY VERIFIED BY PFT 02/17/2022 *CXR OR CT FOR COPD EVER 03/01/2022 DISCUSS TOBACCO CESSATION (REFER TO SMARTSET #3291) 09/22/2022 09/22/2021 COVID-19 Vaccine ( season) 2023 Influenza Vaccine (FLU shot) (Season Ended) 2024 01/07/2018, 01/23/2017, 02/06/2007 HbA1c 02/11/2025 08/11/2024, 01/07, 08/28/2022, Additional history exists Albumin/Creatinine Ratio 08/11/2025 025, 01/16/2024, 08/28/2022, Additional history exists B-12 08/11/2025 08/11/2024, 01/07, 02/15/2022, Additional history exists Diabetic Foot Exam 08/11/2025 08/11/2024, 08/11/2024 GFR 08/11/2025 08/11/2024, 01/07, 08/28/2022, Additional history exists O2 ASSESSMENT COMPLETED IN PAST YEAR FOR COPD 08/11/2025 08/11/2024 TSH 08/11/2025 08/11/2024, 01/07, 02/15/2022, Additional history exists Lipid Panel 08/11/2029 08/11/2024, 01/07, 02/15/2022, Additional history exists Zoster Vaccines Completed 07/06/2020, 06/05/2019 EKG Completed 11/25/2020, 0805/2020, 08/24/2015, Additional history exists Alpha-1 Antitrypsin Completed 08/11/2024 HPV (Gardasil) Vaccine Aged Out No lo nger eligible based on patient's age to complete this topic MENINGOCOCCAL (MENACTRA/MENVEO) Aged Out No longer eligible based on patient's age to complete this topic Meningitis B Vaccine (Bexsero/Trumemba) Aged Out No longer eligible based on patient's age to complete this topic documented as of this encounter Medical Devices Not on filedocumented as of this encounter Procedures Procedure Name Priority Date/Time Associated Diagnosis Comments LYME DISEASE ANTIBODY SCREEN Routine 08/11/2024 2:59 PM EDT Episodic cluster headache, not intractable [id number], QN Routine 08/11/2024 2:59 PM EDT COPD, group B, by GOLD 2017 classification (HCC) VITAMIN B2 (RIBOFLAVIN) Routine 08/11/2024 2:59 PM EDT Episodic cluster headache, not intractable TSH WITH FREE T4 IF INDICATED Routine 08/11/2024 2:59 PM EDT Glucocorticoid-remedi able aldosteronism (HCC) LIPID PANEL WITH DIRECT LDL IF TG IS HIGH Routine 08/11/2024 2:59 PM EDT Encounter for long-term (current) use of medications LYME DISEASE ANTIBODY SCREEN WITH REFLEX TO CONFIRMATION Routine 08/11/2024 2:59 PM EDT Episodic cluster headache, not intractable HEMOGLOBIN A1C Routine 08/11/2024 2:59 PM EDT Type 2 diabetes mellitus with diabetic cataract, unspecified whether penitentiary insulin use (HCC) Glucocorticoid-remedi able aldosteronism (HCC) COMPREHENSIVE METABOLIC PANEL Routine 08/11/2024 2:59 PM EDT Encounter for long-term (current) use of medications THYROID ANTIBODY AND TPO ANTIBODY Routine 08/11/2024 2:59 PM EDT Restless legs syndrome ALBUMIN / CREATININE RATIO, URINE Routine 08/11/2024 2:59 PM EDT HTN, goal below 140/90 ERYTHROCYTE SEDIMENTATION RATE (ESR) Routine 08/11/2024 2:59 PM EDT Episodic cluster headache, not intractable MAGNESIUM Routine 08/11/2024 2:59 PM EDT Episodic cluster headache, not intractable LDL CHOLESTEROL (DIRECT MEASURE) Routine 08/11/2024 2:59 PM EDT Encounter for long-term (current) use of medications VITAMIN B12 Routine 08/11/2024 2:59 PM EDT B12 deficiency documented in this encounter Results * LDL CHOLESTEROL (DIRECT MEASURE) (08/11/2024 2:59 PM EDT) [facility] LDL Cholesterol (Direct Measure) 104 <=129 mg/dL 08/12/2024 4:32 AM EDT [facility] [place]: LDL Cholesterol Reference Ranges (mg/dL): <70 Target level for high risk ASCVD patient <100 Optimal for general population 100-129 Near optimal for general population 130-159 Borderline high 160-189 High >=190 Very high Blood Venous blood specimen / Unknown Venipuncture / Unknown 08/11/2024 2:59 PM EDT 08/11/2024 2:59 PM EDT us Vineet Terry formerly [facility] LAB BLOOD ORDERABLES Fin al Result [facility] [address] [place] [address] * LYME DISEASE ANTIBODY SCREEN (08/11/2024 2:59 PM EDT) Pathologist [facility] Lyme Disease Antibody Screen Negative Negative 08/12/2024 8:37 AM EDT LABORATORY [facility] Blood Venous blood specimen / Unknown Venipuncture / Unknown 08/11/2024 2:59 PM EDT 08/11/2024 2:59 PM EDT [facility] Gary Mingear PA-C LAB BLOOD ORDERABLES Jaclyn l Result Performing Organization Address City/[facility]/ZIP Co de Phone Number [facility] [address] [place] [address] * (ABNORMAL) VITAMIN B12 (08/11/2024 2:59 PM EDT) Vitamin B12 >2,000(H) 232 - 1,245 pg/mL 08/12/2024 5:12 AM EDT [facility] Blood Venous blood specimen / Unknown Venipuncture / Unknown 08/11/2024 2:59 PM EDT 08/11/2024 2:59 PM EDT [facility] Gary Mingear PA-C LAB BLOOD ORDERABLES Jaclyn l Result Performing Organization Address [facility] Co de Phone Number [facility] [address] [place] [address] * ERYTHROCYTE SEDIMENTATION RATE (ESR) (08/11/2024 2:59 PM EDT) Pathologist [facility] ESR 19 <30 mm/hour 08/11/2024 11:11 PM EDT [facility] Blood Venous blood specimen / Unknown Venipuncture / Unknown 08/11/2024 2:59 PM EDT 08/11/2024 2:59 PM EDT [facility] A Mingear PA-C LAB BLOOD ORDERABLES Jaclyn l Result Performing Organization Address [facility] Co de Phone Number [facility] [address] [place] [address] * (ABNORMAL) VITAMIN B2 (RIBOFLAVIN) (08/11/2024 2:59 PM EDT) Pathologist [facility] Vitamin B2 (Riboflavin), Plasma <5.0(L) 6.2 - 39.0 nmol/L 08/16/2024 7:15 AM EDT [facility] [place] Comment: Vitamin supplementation within 24 hours prior to blood draw may affect the accuracy of results. This test was developed and its analytical performance characteristics have been determined by [employer] [place], [place]. It has not been cleared or approved by the FDA. This assay has been validated pursuant to the CLIA regulations and is used for clinical purposes. Test Performed at: [employer] [address] Gurpreet Bazzi M.D., Ph.D.,Director of Laboratories Blood Venous blood specimen / Unknown Venipuncture / Unknown 08/11/2024 2:59 PM EDT 08/11/2024 2:59 PM EDT [facility] A [employer] PA-C LAB BLOOD ORDERABLES Jaclyn l Result Performing Organization Address City/[facility]/ZIP Co de Phone Number [address] [address] * MAGNESIUM (08/11/2024 2:59 PM EDT) Pathologist [facility] Magnesium 1.9 1.5 - 2.6 mg/dL 08/12/2024 4:17 AM EDT [facility] Blood Venous blood specimen / Unknown Venipuncture / Unknown 08/11/2024 2:59 PM EDT 08/11/2024 2:[address] [facility] Amanda [place] DBA [employer] PA-C LAB BLOOD ORDERABLES Jaclyn l Result [facility] [address] [place] [address] * (ABNORMAL) THYROID ANTIBODY AND TPO ANTIBODY (08/11/2024 2:59 PM EDT) Thyroid Peroxidase Antibody 151.3(H) <34.0 IU/mL 08/12/2024 5:12 AM EDT [facility] Thyroglobulin Antibody 193.9(H) <115.0 IU/mL 08/12/2024 5:12 AM EDT [facility] Blood Venous blood specimen / Unknown Venipuncture / Unknown 08/11/2024 2:59 PM EDT 08/11/2024 2:59 PM EDT us Re A Mingear PA-C LAB BLOOD ORDERABLES Jaclyn l Result [facility] [address] [place] [address] * TSH WITH FREE T4 IF INDICATED (08/11/2024 2:59 PM EDT) TSH 0.87 0.27 - 4.20 uIU/mL 08/12/2024 5:12 AM EDT [facility] Blood Venous blood specimen / Unknown Venipuncture / Unknown 08/11/2024 2:59 PM EDT 08/11/2024 2:59 PM EDT us Re A Mingear PA-C LAB BLOOD ORDERABLES Jaclyn l Result Performing Organization Address [facility] Co de Phone Number LABORATORY [address] [address] * [id number], QN (08/11/2024 2:59 PM EDT) [id number] in QN 134 83 - 199 mg/dL 08/15/2024 5:02 AM EDT [facility] [place] Comment: Test Performed at: [employer] [address] [id number] Gurpreet Bazzi M.D., Ph.D.,Director of Laboratories Blood Venous blood specimen / Unknown Venipuncture / Unknown 08/11/2024 2:59 PM EDT 08/11/2024 2:59 PM EDT us Re A Mingear PA-C LAB BLOOD ORDERABLES Jaclyn l Result [facility] [address] [place] [address] * ALBUMIN / CREATININE RATIO, URINE (08/11/2024 2:59 PM EDT) Albumin, Random Urine <1.20 mg/dL 08/11/2024 10:42 PM EDT [facility] Creatinine, Random Urine 59 mg/dL 08/11/2024 10:42 PM EDT [facility] Albumin / Creatinine Ratio, Urine <20 <30 mg/g Creat 08/11/2024 10:42 PM EDT [facility] Urine Urine specimen obtained by clean catch procedure / Unknown Non-blood Collection / Unknown 08/11/2024 2:59 PM EDT 08/11/2024 2:59 PM EDT Narrative [facility] - 08/11/2024 10:42 PM EDT Normal: <30 mg/g creatinine High: 30-300 mg/g creatinine Very High: >300 mg/g creatinine Nephrotic: >2200 mg/g creatinine Re A [employer] PA-C LAB URINE ORDERABLES Jaclyn l Result [facility] [address] [place] [address] * (ABNORMAL) HEMOGLOBIN A1C (08/11/2024 2:59 PM EDT) Hemoglobin A1C 6.5(H) 4.0 - 5.6 % 08/12/2024 12:25 AM EDT [facility] Comment:The use of HbA1c to monitor glycemic status is based on normal hemoglobin and HbA composition. This test should not be used in patients with abnormal hemoglobin that affects the half life of the red blood cell or the in vivo glycation rates. Estimated Average Glucose 140(H) <126 mg/dL 08/12/2024 12:25 AM EDT [facility] Blood Venous blood specimen / Unknown Venipuncture / Unknown 08/11/2024 2:59 PM EDT 08/11/2024 2:59 PM EDT Re Durham PA-C LAB BLOOD ORDERABLES Jaclyn l Result [facility] [address] [place] [address] * (ABNORMAL) COMPREHENSIVE METABOLIC PANEL (08/11/2024 2:59 PM EDT) BUN 11 6 - 20 mg/dL 08/12/2024 4:17 AM EDT [facility] CREATININE 0.9 0.5 - 1.0 mg/dL 08/12/2024 4:17 AM EDT [facility] EGFR 75 >=60 mL/min 08/12/2024 4:17 AM EDT [facility] Comment:eGFR is calculated b ased on the CKD-EPI 2020 equation. SODIUM 136 135 - 146 mmol/L 08/12/2024 4:17 AM EDT [facility] POTASSIUM 4.3 3.5 - 5.1 mmol/L 08/12/2024 4:17 AM EDT [facility] CHLORIDE 99 98 - 107 mmol/L 08/12/2024 4:17 AM EDT [facility] CO2 23 22 - 32 mmol/L 08/12/2024 4:17 AM EDT [facility] ANION GAP 14 7 - 15 mmol/L 08/12/2024 4:17 AM EDT [facility] GLUCOSE 97 70 - 120 mg/dL 08/12/2024 4:17 AM EDT [facility] Albumin 4.1 3.8 - 5.0 g/dL 08/12/2024 4:17 AM EDT [facility] AST 12 10 - 35 U/L 08/12/2024 4:17 AM EDT [facility] Alkaline Phosphatase 61 35 - 130 U/L 08/12/2024 4:17 AM EDT [facility] Bilirubin, Total 0.2 <=1.2 mg/dL 08/12/2024 4:17 AM EDT [facility] CALCIUM 9.3 8.4 - 10.2 mg/dL 08/12/2024 4:17 AM EDT [facility] Protein 6.6 6.0 - 8.3 g/dL 08/12/2024 4:17 AM EDT [facility] ALT 8(L) 10 - 35 U/L 08/12/2024 4:17 AM EDT [facility] Blood Venous blood specimen / Unknown Venipuncture / Unknown 08/11/2024 2:59 PM EDT 08/11/2024 2:59 PM EDT [facility] LAB BLOOD ORDERABLES Fin al Result Performing Organization Address City/[facility]/ZIP Co de Phone Number [facility] [address] [place] [address] * (ABNORMAL) LIPID PANEL WITH DIRECT LDL IF TG IS HIGH (08/11/2024 2:59 PM EDT) Triglycerides 218(H) <=174 mg/dL 08/12/2024 4:17 AM EDT [facility] Comment: Triglyceride Reference Ranges (mg/dL): <150 Acceptable 150-174 Borderline high 175-499 High >=500 Very high Cholesterol 177 <200 mg/dL 08/12/2024 4:17 AM EDT [facility] Comment: Total Cholesterol Reference Ranges (mg/dL): <200 Desirable 200-239 Borderline high >=240 High HDL Cholesterol 39(L) >49 mg/dL 4:17 AM EDT [facility] Comment: HDL Cholesterol Reference Ranges (mg/dL): >=60 High (Desirable) <50 Low (Undesirable) For Females <40 Low (Undesirable) For Males Non-HDL Cholesterol 138 <=159 mg/dL 08/12/2024 4:17 AM EDT [facility] Comment: Non-HDL Cholesterol Reference Range (mg/dL): <100 Target level for high risk ASCVD patient <130 Optimal for general population 130-159 Near optimal for general population 160-189 Borderline High 190-219 High >=220 Very High Blood Venous blood specimen / Unknown Venipuncture / Unknown 08/11/2024 2:59 PM EDT 08/11/2024 2:59 PM EDT [facility] LAB BLOOD ORDERABLES Fin al Result Performing Organization Address City/[facility]/ZIP Co de Phone Number [facility] [address] [place] [address] documented in this encounter Visit Diagnoses Diagnosis Leg weakness, bilateral- Primary Other musculoskeletal symptoms referable to limbs Degeneration of intervertebral disc of lumbar region with discogenic back pain Restless legs syndrome Restless legs syndrome (RLS) Type 2 diabetes mellitus with diabetic cataract, without long-term current use of insulin (HCC) Episodic cluster headache, not intractable Episodic cluster headache Vision changes Unspecified visual disturbance B12 deficiency Other B-complex deficiencies FH: CVA (cerebrovascular accident) Family history of stroke (cerebrovascular) Chronic right shoulder pain Pain in joint, shoulder region Type 2 diabetes mellitus with diabetic cataract (HCC) Type II or unspecified type diabetes mellitus with ophthalmic manifestations, not stated as uncontrolled DM type 2 nursing care encounter ([facility]) Type II or unspecified type diabetes mellitus without mention of complication, not stated as uncontrolled Riboflavin deficiency- Primary Ariboflavinosis Encounter for long-term (current) use of medications Encounter for long-term (current) use of other medications Type 2 diabetes mellitus with diabetic cataract, unspecified whether penitentiary insulin use (HCC) 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
--- OUTSIDE RECORDS SUMMARY | 2024-08-20 15:44 | External Medical Summary | Summary of Care ---
Author Name Unknown Organization [facility] Address [address] [place] [address] Phone [phone] Care Team Providers Care Mental Health Professional Name Role Phone Re Durham PA-C Primary Care Provider [phone] Reason for Visit * Reason Onset Date Comments Imaging Records Request 08/18/2024 Encounter Details Date Type Department Care Team (Late st Contact Info) Description 08/18/2024 Telephone Radiology Film File [address] [place] [address] Support, Imaging Radiology [address] [place] [address] Imaging Records Request Allergies Active Allergy Reactions Criticality Noted Date Comments Latex Other (Please comment) 01/28/2020 Skin irritation Nickel Edema airway,Itching High 01/16/2008 Cefdinir 06/15/2020 diarrhea documented as of this encounter (statuses as of 08/18/2024) Medications Multi-Vitamins Oral Tablet Take 1 Tablet [...] Nasal Solution (Astelin)Indicatio ns:Nasal congestion Administer 1 [place] into nostril in the morning and 1 [place] before bedtime. 90 mL 1 03/18/2023 3:20 PM EST 03/15/20 23 Active Clobetasol Propionate 0.05 % External Cream (Temovate)Indicati ons:Dermatitis Apply to affected area apply topically to affected area twice a day for UP TO 2 weeks 60 g 1 03/18/2023 3:20 PM EST 03/15/20 23 Active Diclofenac Sodium 1 % External Gel (Voltaren)Indicati ons:Pain in joint of right shoulder Apply topically to right shoulder 4 times a day 200 g 1 03/18/2023 3:20 PM EST 03/15/20 23 Active Montelukast Sodium 10 MG Oral Tablet (Singulair)Indicat ions:Chronic maxillary sinusitis Take 1 Tablet by mouth in the morning. 30 Tablet 04/26/19 24 Active Additional Information Patient not taking.Reported on 08/11/2024 Spironolactone 50 MG Oral Tablet (Aldactone) Take 1 Tablet by mouth in the morning. 90 Tablet 2 01/13/2024 1:01 PM EDT 07/15/19 24 Active Ondansetron HCl 8 MG Oral Tablet (Zofran)Indication s:Chronic nausea take 1/2 tablet by mouth every 8 hours if needed for nausea 30 Tablet 1 10/15/2023 3:50 PM EDT 10/14/19 24 Active Aspirin [...] by mouth every evening 270 Tablet 1 07/24/2024 12:09 PM EDT 04/28/19 25 Active Levothyroxine Sodium 88 MCG Oral Tablet (Levoxyl) Take 1 Tablet by mouth in the morning. 90 Tablet 1 06/24/2024 8:43 AM EDT 04/28/19 25 Active Venlafaxine HCl ER 75 MG Oral Capsule Extended Release 24 Hour (Effexor XR)Indications:Mil d episode of recurrent major depressive disorder (HCC),Major depressive disorder with single episode, remission status unspecified take 1 capsule by mouth at bedtime ALONG WITH 150MG capsule FOR A TOTAL OF 225MG. DO NOT CUT,CRUSH OR CHEW 90 Capsule 06/25/2024 6:36 AM EDT 04/28/19 25 Active Metoprolol Tartrate 50 MG Oral Tablet (Lopressor)Indicat ions:HTN, goal below 140/90 take 1 tablet by mouth FIVE TIMES A DAY 450 Tablet 3 08/03/2024 6:04 PM EDT 05/02/19 25 Active traZODone HCl 50 MG Oral Tablet (Desyrel) Take 2 Tablets by mouth at bedtime as needed for Sleep. 180 Tablet 3 07/22/2024 11:42 AM EDT 05/13/19 25 Active metFORMIN HCl 500 MG Oral Tablet (Glucophage)Indica tions:Type 2 diabetes mellitus with diabetic cataract, unspecified whether alf insulin use ([facility]),Type 2 diabetes mellitus with hemoglobin A1c goal of less than 7.0% ([facility]) Take 1 Tablet by mouth daily with breakfast. 30 Tablet 5 05/25/2024 4:46 PM EST 05/21/19 25 Active Anoro Ellipta 62.5-25 MCG/ACT Inhalation Aerosol Powder Breath Activated (umeclidinium-peña nterol) Inhale 1 Puff by mouth in the morning. 180 Each 3 06/03/2024 7:22 AM EST 05/29/19 25 Active amLODIPine Besylate 10 MG Oral Tablet (Norvasc)Indicatio ns:HTN, goal below 140/90 Take 1 Tablet by mouth at bedtime. 90 Tablet 3 06/24/2024 6:39 PM EDT 06/22/19 25 Active Benzonatate 100 MG Oral Capsule (Tessalon Perles)Indications :Bronchitis, complicated,Histor y of influenza Take 1 Capsule by mouth 3 times a day as needed for Cough. 50 Capsule 06/30/19 25 Active Vitamin D (Ergocalciferol) 1.25 MG (46444 UT) Oral Capsule (Drisdol)Indicatio ns:Vitamin D deficiency take 1 capsule by mouth every week 12 Capsule 1 07/21/2024 5:52 PM EDT 07/21/19 25 Active Celecoxib 200 MG Oral Capsule (CeleBREX)Indicati ons:Gastric fistula,Primary osteoarthritis of both shoulders,Primary osteoarthritis of both knees Take 1 Capsule by mouth in the morning. 90 Capsule 1 07/24/2024 11:43 AM EDT 07/21/19 25 Active Venlafaxine HCl ER 150 MG Oral Capsule Extended Release 24 Hour (Effexor XR) take 1 capsule by mouth every morning. DO NOT CRUSH, CHEW, AND/OR DIVIDE 90 Capsule 1 07/24/2024 11:43 AM EDT 07/21/19 25 Active Gabapentin 600 MG Oral Tablet (Neurontin)Indicat ions:Leg weakness, bilateral,Degenera tion of intervertebral disc of lumbar region with discogenic back pain Take 1 Tablet by mouth in the morning and 1 Tablet at noon and 1 Tablet before bedtime. 270 Tablet 1 08/12/19 25 Active tiZANidine HCl 2 MG Oral Tablet (Zanaflex) Take 1 Tablet by mouth daily as needed for Muscle spasms. 40 Tablet 1 08/17/2024 6:38 PM EDT 08/14/19 25 Active documented as of this encounter (statuses as of 08/18/2024) Active Problems Problem Noted Date Diagnosed Date Other spondylosis with radiculopathy, lumbar reg ion 04/28/2024 Food insecurity 12/16/2023 Overview: Per [facility] Protocol Restless legs syndrome 04/12/2023 Assessment & Plan (08/11/2024 2:16 PM EDT): Orders: THYROID ANTIBODY AND TPO ANTIBODY; Future Glucocorticoid-remediable aldosteronism 04/12/19 24 Metabolic syndrome 04/12/2023 Type 2 diabetes mellitus [...] as of this encounter (statuses as of 08/18/2024) Resolved Problems Problem Noted Date Diagnosed Date [...] as of this encounter (statuses as of 08/18/2024) Immunizations Name Administration Dates Next Due Pneumococcal [...] money to buy more. 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 [place] Authorization to Release on file. Images pushed to [facility] PACS external connection. Associated report(s) not needed. documented in this encounter Plan of Treatment Upcoming Encounters Date Type Department Care Team (Late st Contact Info) Description 08/29/2024 7:30 AM EDT Imaging Radiology [facility] [address] [place] [phone] 02/18/2025 8:20 AM EST Office Visit Family [facility] [place] [facility] [address] [place] [phone] Re Durham PA-C [address] [place] [address] Scheduled Procedures Name Priority Associated Diagnoses Date/Ti [...] SMARTSET #[id number]) 09/22/2022 09/22/2021 COVID-19 Vaccine ( - season) 2023 Influenza Vaccine (FLU shot) (Season [...] Vaccines Completed 07/06/2020, 06/05/2019 EKG Completed 11/25/2020, 08/0 05/2020, 08/24/2015, Additional history exists Alpha-1 Antitrypsin Completed [...] Not on filedocumented as of this encounter Care Teams Mental Health Professional Relationship Specialty Start Date End Date Re Durham PA-C [facility] [place] [id number] PCP - General Physician Manager Multicultural 10/23/23 documented as of this encounter
[2024-08-20 17:12] LABS: Urine Potassium 18.5 mmol/L
--- NOTE | 2024-08-20 17:17 | Electrocardiogram Report ---
Test Reason : Blood Pressure : */* mmHG Vent. Rate : 68 BPM Atrial Rate : 68 BPM P-R Int : 180 ms QRS Dur : 76 ms QT Int : 382 ms P-R-T Axes : 43 46 31 degrees QTcB Int : 406 ms Normal sinus rhythm When compared with ECG of 19-Aug-2024 14:32, Nonspecific T wave abnormality, worse in Anterior leads Confirmed by Dion Carter ([id number]) on 08/20/2024 5:16:51 PM Referred By: REFERRED SELF Confirmed By: Dion Carter
[2024-08-20] MEDS: MELATONIN 3 MG TAB PO SCH (20:12)
[2024-08-20] MEDS: VALSARTAN/SACUBITRIL 26/24MG TAB PO SCH (20:17)
[2024-08-21 05:09] LABS: Basophils # (auto) 0.07 K/uL (0.00-0.20); Basophils % (auto) 0.6 %; Eosinophils # (auto) 0.15 K/uL (0.00-0.50); Eosinophils % (auto) 1.2 %; Hematocrit (blood only) 39.9 % (37.0-47.0); Hemoglobin 14.2 g/dl (12.0-16.0); Immature Granulocytes # (auto) 0.06 K/uL (0.01-0.20); Immature Granulocytes % (auto) 0.5 %; Lymphocytes # (auto) 2.22 K/uL (1.20-3.40); Mean Corpuscular Hemoglobin 33.6 pg (25.0-34.0); Mean Corpuscular Hgb Conc 35.6 g/dL (32.0-36.0); Mean Corpuscular Volume 94.5 fL (80.0-100.0); Mean Platelet Volume 10.6 fL (9.4-12.4); Monocytes # (auto) 1.02 K/uL (0.11-0.59); Monocytes % (auto) 8.3 %; Neutrophils # (auto) 8.78 K/uL (1.40-6.50); Neutrophils % (auto) 71.4 %; Platelet Count 262 K/uL (130-400); RDW Coefficient of Variation 12.6 % (11.5-14.5); RDW Standard Deviation 43.7 fL (36.4-46.3); Red Blood Count 4.22 M/uL (4.20-5.40)
[2024-08-21 05:24] LABS: Albumin Globulin Ratio 1.2 (0.9-2); Albumin Level 3.9 gm/dl (3.4-5.0); BUN Creatinine Ratio 17.4 (10-20); Bilirubin,Total 0.7 mg/dl (0.2-1.0); Calcium 9.1 mg/dl (8.6-10.3); Creatinine Clr Calc Pharmacy 85.7 ml/min; Globulin 3.3 gm/dl (2.5-4.0); Magnesium 1.8 mg/dl (1.7-2.4); Phosphorus 3.9 mg/dl (2.5-4.9); Potassium 3.9 mmol/L (3.5-5.1); Total Protein 7.2 gm/dl (6.0-8.3)
[2024-08-21] MEDS: SPIRONOLACTONE 25 MG TAB PO SCH (07:25)
--- NOTE | 2024-08-21 09:15 | Nephrology Consultation ---
Date of Consultation August 21, 2024 Assessment & Plan (1) Chronic hyponatremia: Mild now moderate hyponatremia which is chronic ID of greater than 48 hours duration. Historically has not had this issue as an outpatient. had one dose of IV lasix w/ K today. Volume status appears appropriate/euvolemic. Possible SIADH from venlafaxine; possible euvolemic hyponatremia from nsaids, spironolactone; thyroiditis may have a role; volume depletion in theory should be considered as well, though urine lytes not suggestive of marked contraction . -chest x-ray to eval vol status and COPD if present given smoking hx >> CXR wnl -serum and urine osmolality and urinalysis with microscopy >> all ordered w/ repeat BMP for 1800 - endocrine evaluation as appropriate > suggest IP endocrine c/s if feasible, else close in OP endocrine f/u -stop all nsaids forever except as directed by cardiology -maintain eukalemia -daily bmp -may need standing lasix -for now no fluid limit but do continue strict I/O Care reviewed w/ Dr Green via TText re labs, etiologies, medications; we are in agreeement. (2) HFrEF (heart failure with reduced ejection fraction): on GDMT ->consider standing loop diuretic >>would hold off on empagliflozin or similar until sodium levels stabilized >> eval starting SGLT2i as OP -hold spironolactone for moment but has multiple indications for this drug (3) ST elevation (STEMI) myocardial infarction: ? role for NSAIDs versus aldosteronism versus thyroiditis versus polycystic ovarian syndrome here versus other more conventional risk factors such as tobacco abuse >as per cardiology (4) Dexamethasone suppressible hyperaldosteronism: resume spironolactone immediately if uncontrolled HTN; for now hold chan d/t hyponatremia (5) Thyroiditis, autoimmune: based on recent and remote OP labs above >thryoid ultrasound > defer to primary service to order IP if indicated; may be better as op depending on which endocrine group picks up her care >contine synthroid >suggest IP endocrine eval or close in OP eval History of Present Illness Reason for Consultation: Hyponatremia Requesting Physician: Dr Green Attending Physician: Lucita Green MD History of Present Illness 59-year-old female whom I am asked to evaluate for hyponatremia was admitted August 19 STEMI with newly discovered severe multivessel coronary artery disease. Her presenting sodium was 132, has downtrended to 129 this morning. Past medical history includes type 2 diabetes since 2002, hypertension with recent systolic blood pressures in clinic 1 teens to 130s, PVCs on flecainide, COPD, PCOS, dexamethasone suppressible hyperaldosteronism, incompletely characterized thyroid disease >> labs c/w chronic autoimmune thyroiditis >> states she was told it's Simon's, chronic back pain, RLS, current class 3 obesity w/ past h/o weighing > 400 lb and s/p band gastroplasty, depression, active tobacco use. She saw endocrine [facility] once in 12/2022 and in course of w/u noted to have elevated thyroid microsomal antibody and normal TFTs for which endo started her on synthroid. no f/u thereafter w/ endo. her back pain had been worse unusual recently. Has used Celebrex x years she tells me; denies other NSAID use. She presented to the ER with anterior neck aching and chest pain radiating to the back and right upper extremity pain with associated nausea and vomiting. ECG with ST elevations and to lab scientist with implantation of 3 overlapping drug- eluting stents in the LAD. She was started on aspirin, Brilinta, rosuvastatin; metoprolol dosing was modified. Flecainide was discontinued. Started Entresto last evening. Her customary outpatient Synthroid was continued. spironolactone was stopped She is on room air and is 2.1 L positive on the admission to date as of this am. She is adamant that she must be d/c tomorrow; No n/v; no sob/cough/wheeze; no recurrent neck or chest or RUE pain; ongoing stable chronic back pain. no edema; no new/worrisome voiding sx. no rash; no f/c; no tremor. Allergies Allergy/AdvReac Type Severity Reaction Status Date / Time latex Allergy Mild SKIN Verified 12/18/22 09:41 REDNESS/ITCHING adhesive Allergy Unknown rash Verified 12/18/22 09:41 nickel Allergy Unknown contact Verified 12/18/22 09:41 dermatitis cefdinir [From Omnicef] AdvReac Intermediate diarrhea Verified 12/18/22 09:41 Home Medications Medication Instructions Recorded Confirmed Type albuterol sulfate 90 mcg/actuation 2 inha inhalation QID PRN 04/17/18 08/19/24 Rx aerosol inhaler shortness of breath or wheezing #1 g amlodipine 10 mg tablet (Norvasc) 10 mg PO HS 06/12/22 08/19/24 History cholecalciferol (vitamin D3) 1,250 1,250 mcg PO .weekly 06/12/22 08/19/24 History mcg (50,000 unit) tablet metformin 500 mg tablet 500 mg PO PM 06/12/22 08/19/24 History multivitamin 1 tab PO DAILY 06/12/22 08/19/24 History flecainide 50 mg tablet 100 mg PO DAILY 07/27/22 08/19/24 History trazodone 50 mg tablet 100 mg PO HS PRN Insomnia 07/27/22 08/19/24 History umeclidinium 62.5 mcg-vilanterol 1 inh inhalation QAM 07/27/22 08/19/24 History 25 mcg/actuation powdr for inhalation (Anoro Ellipta) celecoxib 200 mg capsule (Celebrex) 200 mg PO DAILY 12/18/22 08/19/24 History gabapentin 400 mg tablet 400 mg PO TID 12/18/22 08/19/24 History metoprolol tartrate 50 mg tablet 50 mg PO 5XD 12/18/22 08/19/24 History spironolactone 50 mg tablet 50 mg PO DAILY #30 tabs 12/18/22 08/19/24 Rx (Aldactone) levothyroxine 88 mcg tablet 88 mcg PO DAILY #30 tabs 12/28/22 08/19/24 Rx flecainide 50 mg tablet 50 mg PO PM 08/19/24 08/19/24 History venlafaxine 150 mg 150 mg PO PM 08/19/24 08/19/24 History capsule,extended release 24 hr venlafaxine 75 mg tablet,extended 75 mg PO PM 08/19/24 08/19/24 History release 24 hr Patient History Medical History Tobacco use disorder Irritable bowel syndrome without diarrhea Frequent PVCs lost to f/u with [facility] COPD (chronic obstructive pulmonary disease) History of diverticulitis Sinus congestion CHRONIC Sinus drainage CHRONIC- POST NASAL DRIP Surgical History Hx of oral surgery (08/02/22) p Excision of Mass Right Cheek (Large Fibroma), Excision of Radiolucent Lesion Right Floor of Sinus and Maxilla,(Right), closure of large lateral sinus wall opening with advancement flap - Lewis Castillo, DMD s Extraction of Teeth 1, 2, 3, 15, 20(Not Applicable) - Lewis Castillo DMD Hx of abdominal surgery ABDOMINAL FISTULA REPAIR History of esophagogastroduodenoscopy (EGD) History of cardiac radiofrequency ablation FOR PALPITATIONS H/O excision of mass History of gastric surgery H/O hernia repair x2 S/P cholecystectomy History of surgery vertical banded gastroplasty H/O abdominoplasty Previous section H/O knee surgery Family History Aunt Breast cancer Mother Diabetes Heart disease Hypertension Sister Diabetes Stroke Father Heart disease Grandmother Stroke Other Colorectal cancer No pertinent family history Social History Smoking Status: Current every day smoker Tobacco Type: Cigarettes packs per day: 1; Cigarettes Per Day: 5 cig per day; Second Hand Exposure: No; Do You Dip or Chew Tobacco: No; Hx Alcohol Use: No Hx Substance Use: No Preferred Language: Haitian Communication Ability: Effective Visual Impairment: No Limitations Shoe Packer Required: No Beliefs That Will Affect Care: None marital status: Current Living Situation: Family current occupational status: student How many Children do You have: 1 Feels Safe at Home: Yes Safety Concerns: Feels Safe At This Time Diet: diabetic during the past year weight has: decreased > 10 lbs Assistive Devices: None Review of Systems 2 Review of Systems: All systems reviewed & are unremarkable except as noted in HPI & below Physical Exam 2 Constitutional: well developed (sitting up in chair on RA), well nourished, + obese and cooperative; no acute distress Eyes: EOM intact bilaterally ENMT: Mouth: + dry oral mucous membranes Respiratory: normal respiratory effort Auscultation: + diminished lung sounds and + wheezes (occasional) Cardiovascular: Rate/Rhythm: regular rate and regular rhythm Extremities: n o edema Gastrointestinal (Abdomen): Inspection/Auscultation: normal bowel sounds P ercussion/Palpation: abdomen soft; abdomen nontender Musculoskeletal: Extremities: strength 5/5 throughout Skin: no rashes, warm and dry Neurologic: ashby, fluent speech, no tremor Psychiatric: Orientation: alert and oriented x 3 Results & Data Vital Signs (Past 12 Hours) Vital Signs Temp Pulse Resp BP Pulse Ox O2 Del Method 08/21/24 08:03 73 19 08/21/24 08:00 Room Air 08/21/24 08:00 36.5 C 08/21/24 07:29 130/80 08/21/24 07:24 75 20 95 08/21/24 07:01 71 18 103/86 96 Room Air 08/21/24 05:33 71 18 93 08/21/24 05:18 78 13 92 08/21/24 05:00 66 18 93 08/21/24 05:00 115/80 08/21/24 05:00 115/80 08/21/24 05:00 115/80 08/21/24 04:54 63 15 96 08/21/24 04:48 64 17 94 08/21/24 04:39 66 17 94 08/21/24 04:21 64 18 94 08/21/24 04:01 125/95 08/21/24 04:00 67 18 92 08/21/24 03:54 81 18 96 08/21/24 03:30 77 19 96 08/21/24 03:21 73 18 99 08/21/24 03:18 73 21 91 08/21/24 03:00 36.5 C 08/21/24 03:00 149/92 H 08/21/24 02:51 77 18 87 L 08/21/24 02:42 66 18 97 08/21/24 02:33 80 16 93 08/21/24 02:21 70 18 92 08/21/24 02:01 123/95 08/21/24 02:01 123/95 08/21/24 02:00 70 19 88 L 08/21/24 01:54 74 20 96 08/21/24 01:45 67 20 93 08/21/24 01:33 92 H 17 93 08/21/24 01:12 66 21 92 08/21/24 01:00 60 17 94 08/21/24 01:00 144/90 H 08/21/24 01:00 144/90 H 08/21/24 00:45 83 16 95 08/21/24 00:18 65 15 95 08/21/24 00:01 115/78 08/21/24 00:01 115/78 08/20/24 23:39 55 L 19 96 08/20/24 23:36 56 L 14 95 08/20/24 23:24 64 21 96 08/20/24 23:03 55 L 14 94 08/20/24 23:01 124/95 08/20/24 23:01 124/95 08/20/24 22:57 63 12 94 08/20/24 22:54 59 L 15 95 08/20/24 22:33 60 19 95 08/20/24 22:27 65 16 95 08/20/24 22:18 75 18 89 L 08/20/24 22:01 128/74 08/20/24 22:01 128/74 08/20/24 22:00 65 17 94 08/20/24 21:54 65 15 93 08/20/24 21:42 65 15 92 08/20/24 21:33 70 23 95 08/20/24 21:21 62 18 93 Laboratory Results 08/21/24 04:44 08/21/24 04:44 Linda 56, uCl 55 Outpatient labs August 11, 2024 at [facility] TSH 0.87 (within normal limits) Thyroglobulin antibody 194 ( should be less than 115) Thyroid peroxidase antibody 151 (should be less than 34) [facility] Dec 2022 TPO 193 Diagnostic Findings no CXR Transthoracic echocardiogram August 19 LV ejection fraction 40-45% with large sized apical septal and anteroseptal wall motion abnormalities. Grade 1 diastolic dysfunction. Mild aortic sclerosis without stenosis. (3) ST elevation (STEMI) myocardial infarction Involved coronary artery: unspecified coronary artery Qualified Code(s): I 21.3 - ST elevation (STEMI) myocardial infarction of unspecified site
--- NOTE | 2024-08-21 10:24 | Cardiology Progress Note ---
Date of Service August 21, 2024 Assessment & Plan (1) ST elevation (STEMI) myocardial infarction: (2) Presence of stent in LAD coronary artery: (3) HFrEF (heart failure with reduced ejection fraction): (4) Hypertension: (5) Dyslipidemia, goal LDL below 70: Plan 08/20/24 Patient presenting with several hours of chest pain yesterday with findings consistent of anterior STEMI on EKG. Cardiac cath revealing 100% occlusion of the LAD and patient received 3 overlapping REGINA. She tolerated procedure and symptoms improved post intervention. Echo post procedure revealed large anterior wall motion abnormality with LVEF 40-45% HS troponin 38 on arrival, increasing to 18,477 and trending down to 17,277 this morning. Started on guideline directed medical therapies including ASA 81 mg daily, Brilinta 90 mg BID, rosuvastatin 10 mg daily (recently stopped atorvastatin due to myalgias). Dual antiplatelet therapy recommended for at least 1 year, preferably longer given complex interventions per interventionalist. Previously on metoprolol tartrate - Transition to metoprolol succinate 25 mg BID given reduced LVEF. Started losartan 25 mg daily. Likely would benefit from Entresto. As an outpatient she has been on spironolactone 50 mg daily. She has hyponatremia on labs today - reduce dose to 25 mg daily. Repeat BMP tomorrow. Consider Jardiance. Cardiac rehab MTM referral as outpatient to optimize meds as an outpatient as well. Consider Entresto, smoking cessation treatment, and if she fails to tolerated crestor - will likely need PSCK9 inhib. Continue to monitor on telemetry Will follow. 08/21/24: Patient without recurrent angina. Episodic SOB reported, resolves quickly. Occurs when she is trying to fall asleep. Would consider sleep med evaluation given PND. Patient reports her son had similar symptoms on Brilinta, which has potential for symptoms. However given recent intervention, need to continue antiplatelet therapy with ASA and Brilinta. If symptoms persist, could consider future transition to plavix. Continue metoprolol succinate 25 mg BID Started on Entresto - tolerating. BP controlled Sodium is trending lower despite reducing spironolactone. Will hold/stop for now. Repeat BMP tomorrow AM Supplement magnesium today at 1.8 Continue statin. Prior history of statin intolerance. If she fails to tolerate rosuvastatin, consider PCSK9 inhib Cardiac rehab recommended upon discharge. Compliance with meds encouraged. Case discussed with Dr. Trevino I spent a total of 30 minutes on the date of service in preparation, delivery, and documentation of the care provided to this patient, excluding any time spent in the performance of separately billed services. Ivanna Shah PA-C Department of Cardiology, [facility] This chart was completed in part utilizing Speech Voice Recognition Software. Grammatical errors, random word insertions, pronoun errors, and incomplete sentences are an occasional consequence of this system due to software limitations, ambient noise, and hardware issues. Any formal questions or concerns about the content, text, or information contained within the body of this dictation should be directly addressed to the provider for clarification. Admission and Anticipated Discharge Date Admission Date: August 19, 2024 Supervising Physician Co-Signing Physician Notes I have personally performed a history and physical examination on the patient. I have reviewed the advance practitioner's documentation, and I agree with, and take responsibility for the plan of care. 59-year-old female with anterior ST elevation ND status post drug-eluting stent implantation to the left anterior descending artery. Reports difficulty sleeping overnight and possible orthopnea. No edema. Also notes occasional brief episodes of shortness of breath. Possible side effect of Brilinta considered. No dysrhythmia on telemetry. Serum sodium trending downward today. Echocardiogram reveals mildly reduced LV systolic function with a large apical wall motion abnormality with hypokinesis to dyskinesis of the segments. Recommendations: * CXR PA and lateral * Lasix 20 mg IV x 1. * Potassium chloride 20 mEq ordered. * Continue dual antiplatelet therapy for minimum of 1 year post percutaneous intervention. * Hold spironolactone due to hyponatremia. * Entresto 26/24 BID this evening. * Toprol-XL 25 mg twice daily. * Continue high intensity statin therapy. * Consider addition of Jardiance as outpatient. * Consider referral to [facility] clinic as outpatient for PCSK9 inhibitor if patient unable to tolerate statin therapy. I spent a total of 30 minutes on the date of service in preparation, delivery, and documentation of the care provided to this patient, excluding any time spent in the performance of separately billed services. Sushant Trevino DO, [facility] Subjective Patient resting in chair. Denies chest pain. Admits to episodic SOB, more at rest. resolves within a few seconds. Occurs when she is trying to "fall asleep" but denies orthopnea. No recurrent chest pain. No palpitations or tachypalpitaitons. Sodium continues to trend lower. Patient reports mild lower extremity "cramping". No edema. No calf pain. Review of Systems Review of Systems: All systems reviewed & are unremarkable except as noted in HPI & below Physical Exam Constitutional: WD/WN, vitals as above Neck: trachea midline, no thyromegaly Respiratory: no labored breathing Auscultation: + diminished lung sounds; no rales and no rhonchi Cardiovascular: Rate/Rhythm: regular rate and regular rhythm Heart Sounds: normal S1 and normal S2; no murmur Vessels: no JVD Extremities: no edema Gastrointestinal (Abdomen): normal bowel sounds, soft, nontender, no hepatosplenomegaly Musculoskeletal: no cyanosis or clubbing, extremities motor strength 5/5 Neurologic: PERRL, EOMI, accommodation nl, no face palsy, no dysarthria Psychiatric: A+Ox3, euthymic affect Results & Data Vital Signs (Past 12 Hours) Vital Signs Temp Pulse Resp BP Pulse Ox O2 Del Method 08/21/24 09:06 71 19 08/21/24 08:03 73 19 08/21/24 08:00 Room Air 08/21/24 08:00 36.5 C 08/21/24 07:29 130/80 08/21/24 07:24 75 20 95 08/21/24 07:01 71 18 103/86 96 Room Air 08/21/24 05:33 71 18 93 08/21/24 05:18 78 13 92 08/21/24 05:00 66 18 93 08/21/24 05:00 115/80 08/21/24 05:00 115/80 08/21/24 05:00 115/80 08/21/24 04:54 63 15 96 08/21/24 04:48 64 17 94 08/21/24 04:39 66 17 94 08/21/24 04:21 64 18 94 08/21/24 04:01 125/95 08/21/24 04:00 67 18 92 08/21/24 03:54 81 18 96 08/21/24 03:30 77 19 96 08/21/24 03:21 73 18 99 08/21/24 03:18 73 21 91 08/21/24 03:00 36.5 C 08/21/24 03:00 149/92 H 08/21/24 02:51 77 18 87 L 08/21/24 02:42 66 18 97 08/21/24 02:33 80 16 93 08/21/24 02:21 70 18 92 08/21/24 02:01 123/95 08/21/24 02:01 123/95 08/21/24 02:00 70 19 88 L 08/21/24 01:54 74 20 96 08/21/24 01:45 67 20 93 08/21/24 01:33 92 H 17 93 08/21/24 01:12 66 21 92 08/21/24 01:00 60 17 94 08/21/24 01:00 144/90 H 08/21/24 01:00 144/90 H 08/21/24 00:45 83 16 95 08/21/24 00:18 65 15 95 08/21/24 00:01 115/78 08/21/24 00:01 115/78 08/20/24 23:39 55 L 19 96 08/20/24 23:36 56 L 14 95 08/20/24 23:24 64 21 96 08/20/24 23:03 55 L 14 94 08/20/24 23:01 124/95 08/20/24 23:01 124/95 08/20/24 22:57 63 12 94 08/20/24 22:54 59 L 15 95 08/20/24 22:33 60 19 95 08/20/24 22:27 65 16 95 Laboratory Results Cardiac Enzymes 08/21/24 Range/Units 04:44 AST 42 H (13-39) U/L CBC 08/20/24 08/21/24 Range/Units 14:16 04:44 WBC 13.35 H 12.30 H (4.8-10.8) K/ul RBC 4.40 4.22 (4.20-5.40) M/uL Hgb 14.7 14.2 (12.0-16.0) g/dl Hct 41.0 39.9 (37.0-47.0) % Plt Count 281 262 (130-400) K/uL Neut # (Auto) 10.20 H 8.78 H (1.40-6.50) K/uL Lymph # (Auto) 1.76 2.22 (1.20-3.40) K/uL Titus # (Auto) 1.06 H 1.02 H (0.11-0.59) K/uL Eos # (Auto) 0.16 0.15 (0.00-0.50) K/uL Baso # (Auto) 0.08 0.07 (0.00-0.20) K/uL Comprehensive Metabolic Panel 08/21/24 Range/Units 04:44 Sodium 129 L (136-145) mmol/L Potassium 3.9 (3.5-5.1) mmol/L Chloride 96 L (98-107) mmol/L Carbon Dioxide 24 (21-32) mmol/L BUN 16 (6-23) mg/dl Creatinine 0.92 (0.6-1.2) mg/dl Glucose 136 H (70-99(Fasting)) mg/dl Calcium 9.1 (8.6-10.3) mg/dl AST 42 H (13-39) U/L ALT 16 (7-52) U/L Alkaline Phosphatase 64 (34-104) U/L Total Protein 7.2 (6.0-8.3) gm/dl Albumin 3.9 (3.4-5.0) gm/dl Intake and Output 08/20/24 08/21/24 08/21/24 22:59 06:59 14:59 Intake Total 450 / 1350 360 / 360 Output Total 500 / 500 Balance -50 / 850 360 / 360 Intake: Oral 450 / 1350 360 / 360 Output: Urine 500 / 500 Other: # Unmeasured Voids 1 1 1 Diagnostic Findings Telemetry reviewed: NSR with rare PVC. No arrhythmias Medications Administered Current Inpatient Medications Acetaminophen (Acetaminophen 325 Mg Tab) 650 mg PO Q4H PRN PRN Reason: MILD Pain (Scale 1,2,3) Stop: 09/18/24 14:13 Last Admin: 08/20/24 14:29 Dose: 650 mg Aspirin (Aspirin 81 Mg Ectab) [facility] Stop: 09/19/24 08:59 Last Admin: 08/21/24 07:25 Dose: 81 mg Atropine Sulfate (Atropine Sulfate 0.1 Mg/Ml 10ml Syr) 0.5 mg IV ONCE PRN PRN Reason: bradycardia/hypotension Stop: 09/18/24 14:13 Gabapentin (Gabapentin 400 Mg Cap) 400 mg PO TID [facility] Stop: 09/18/24 20:59 Last Admin: 08/21/24 07:26 Dose: 400 mg Levothyroxine Sodium (Levothyroxine Sodium 88 Mcg Tablet) 88 mcg PO DAILYBB [facility] Stop: 09/19/24 06:29 Last Admin: 08/21/24 07:24 Dose: Not Given Melatonin (Melatonin 3 Mg Tab) 9 mg PO HS [facility] Stop: 09/19/24 20:59 Last Admin: 08/20/24 20:12 Dose: 9 mg Metoprolol Succinate (Metoprolol Succ 25mg Ext Rel Tab) 25 mg PO BID [facility] Stop: 09/19/24 08:59 Last Admin: 08/21/24 07:25 Dose: 25 mg Miscellaneous (Icu Protocol For Hyperglycemia) 1 each N/A ACHS [facility] Stop: 08/21/24 16:29 Last Admin: 08/21/24 07:26 Dose: Not Given Multivitamins (Multivitamin Tab) 1 tab PO QAM [facility] Stop: 09/19/24 08:59 Last Admin: 08/21/24 07:25 Dose: 1 tab Ondansetron HCl (Ondansetron Inj 2 Mg/Ml 2 Ml Vial) 4 mg IV Q6H PRN PRN Reason: Nausea And Vomiting Stop: 09/18/24 14:13 Rosuvastatin Calcium (Rosuvastatin Calcium 10 Mg Tab) 10 mg PO QAM [facility] Stop: 09/19/24 08:59 Last Admin: 08/21/24 07:26 Dose: 10 mg Sacubitril/Valsartan (Valsartan/Sacubitril 26/24mg Tab) 1 tab PO BID [facility] Stop: 09/19/24 20:59 Last Admin: 08/21/24 07:23 Dose: 1 tab Ticagrelor (Ticagrelor 90 Mg Tab) 90 mg PO BID [facility] Stop: 09/19/24 08:59 Last Admin: 08/21/24 07:25 Dose: 90 mg Trazodone HCl (Trazodone Hcl 100 Mg Tab) 100 mg PO HS PRN PRN Reason: Insomnia Stop: 09/18/24 16:41 Last Admin: 08/20/24 21:57 Dose: 100 mg Umeclidinium/Vilanterol (Umeclidinium/Vilanterol 62.5/25mcg 7 Puffs/Inhaler) 1 puffs INH QAM [facility] Stop: 09/19/24 08:59 Last Admin: 08/21/24 07:23 Dose: 1 puffs Venlafaxine HCl (Venlafaxine Hcl Xr 150 Mg Capxr) 150 mg PO PM [facility] Stop: 09/18/24 20:59 Last Admin: 08/20/24 20:18 Dose: 150 mg Venlafaxine HCl (Venlafaxine Hcl Xr 75 Mg Capxr) 75 mg PO PM [facility] Stop: 09/18/24 20:59 Last Admin: 08/20/24 20:19 Dose: 75 mg (1) ST elevation (STEMI) myocardial infarction Involved coronary artery: unspecified coronary artery Qualified Code(s): I21.3 - ST elevation (STEMI) myocardial infarction of unspecified site
--- NOTE | 2024-08-21 10:39 | Hospitalist Progress Note ---
Date of Service August 21, 2024 Assessment & Plan (1) ST elevation (STEMI) myocardial infarction: Plan Patient is 59 year old female with PMHx significant for DM II, HTN, PVC's on Flecainide, COPD, hypothyroidism, depression, chronic back pain, RLS, tobacco use, obesity who presented to the ER with anterior neck pain, chest pain with radiation to the back and RUE pain. En route given 324mg aspirin and 3 SL nitro and fentanyl by EMS and was made a heart alert. 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 She is s/p PCI of the LAD with implantation of 3 overlapped drug-eluting stents. STEMI EKG with ST elevation in the setting of chest pain hs-Trop elevation from 38 to 18,477.8 to 17,277.3 Resting echo with EF 40-45%, large apical, septal anteroseptal wall motion abnormalities with hypokinesis to dyskinesis, Grade 1 diastolic dysfunction S/P cardiac cath on 08/19/24. Report from Interventional Cardiology noted the following: "...1. Severe multivessel coronary disease involving the LAD and PDA. LAD is the culprit. 2. Successful PCI of the LAD with implantation of 3 overlapped drug-eluting stents. 3. Patient will be on dual antiplatelet therapy for at least 1 to 2 years (preferably indefinitely secondary to extensive stenting). 4. Guideline directed medical therapy for secondary prevention of coronary disease has been initiated. This includes low-dose aspirin, high intensity statin therapy, beta-ld, and ARB (given diabetes). Additional titration of regimen to achieve target heart rate and blood pressure... 5. FLECAINIDE has been discontinued with newly identified CAD..." ICU for close telemetry monitoring Continue Aspirin 81mg, Brilinta 90mg BID, Toprol 25mg BID, rosuvastatin 10mg daily with Entresto spironolactone 25mg currently on hold Cardiology consulted, appreciate recs Continue to monitor PVC's History PVCs, has seen [facility] cardiology in past. Was on Flecainide and metoprolol tartrate 50mg 5 times a day Cardiology consulted as above -continue Toprol 25mg BID -Flecainide discontinued Continue to monitor on telemetry Hyponatremia Sodium of 132 on admission, downtrending Appears mild, chronic Urine electrolytes ordered for further workup Nephrology consulted, appreciate recs Type 2 diabetes mellitus A1c: 6.5 on 08/11/24 Hold home metformin Novolog sliding scale per protocol Hypertension Previously was on home amlodipine 10mg daily, metoprolol tartrate 50mg 5x day, spironolactone Per Cardiology as noted above: Discontinue amlodipine Continue with Toprol XL 25mg BID Continue spironolactone 25mg daily- currently on hold Continue entresto at BID dosing Continue to monitor BP COPD (chronic obstructive pulmonary disease) No signs exacerbation Continue home inhalers Hypothyroidism TSH: 0.87 on 08/11/24 Continue levothyroxine Depression Continue venlafaxine Tobacco use disorder Was smoking 1.5ppd and over past 5 months is now down to smoking 5 cigarettes a day Encourage cessation Pt with adhesive allergy- consider nicotine gum while hospitalized to help with cessation Diet: HH/DMII DVT Prophylaxis: SCDs Dispo: PT/OT ordered for recs, likely home once medically stable Admission and Anticipated Discharge Date Admission Date: August 19, 2024 Subjective pt was seen in the AM in room 104 Anxious for discharge Notes she is still having episodes of SOB, sometimes before she falls asleep Notes that the melatonin helped her sleep but she was awakened to be given trazodone and could not go back to sleep after Noted progressing hyponatremia today Review of Systems Review of Systems: All systems reviewed & are unremarkable except as noted in Subjective Physical Exam Physical Exam: General: Alert, oriented. No acute distress Skin: No noted rashes or bruises Psych: Appropriate mood and affect HEENT: NC/AT CV: RRR Resp: Breath sounds clear bilaterally, no increased effort of breathing Abdomen: Soft, nontender Extremities: No edema in lower extremities bilaterally. Results & Data Results & Data Vital Signs (Past 12 Hours) Vital Signs Temp Pulse Resp BP Pulse Ox O2 Del Method 08/21/24 10:24 121/75 96 Room Air 08/21/24 10:09 72 18 08/21/24 09:06 71 19 08/21/24 08:03 73 19 08/21/24 08:00 Room Air 08/21/24 08:00 36.5 C 08/21/24 07:29 130/80 08/21/24 07:24 75 20 95 08/21/24 07:01 71 18 103/86 96 Room Air 08/21/24 05:33 71 18 93 08/21/24 05:18 78 13 92 08/21/24 05:00 66 18 93 08/21/24 05:00 115/80 08/21/24 05:00 115/80 08/21/24 05:00 115/80 08/21/24 04:54 63 15 96 08/21/24 04:48 64 17 94 08/21/24 04:39 66 17 94 08/21/24 04:21 64 18 94 08/21/24 04:01 125/95 08/21/24 04:00 67 18 92 08/21/24 03:54 81 18 96 08/21/24 03:30 77 19 96 08/21/24 03:21 73 18 99 08/21/24 03:18 73 21 91 08/21/24 03:00 36.5 C 08/21/24 03:00 149/92 H 08/21/24 02:51 77 18 87 L 08/21/24 02:42 66 18 97 08/21/24 02:33 80 16 93 08/21/24 02:21 70 18 92 08/21/24 02:01 123/95 08/21/24 02:01 123/95 08/21/24 02:00 70 19 88 L 08/21/24 01:54 74 20 96 08/21/24 01:45 67 20 93 08/21/24 01:33 92 H 17 93 08/21/24 01:12 66 21 92 08/21/24 01:00 60 17 94 08/21/24 01:00 144/90 H 08/21/24 01:00 144/90 H 08/21/24 00:45 83 16 95 08/21/24 00:18 65 15 95 08/21/24 00:01 115/78 08/21/24 00:01 115/78 08/20/24 23:39 55 L 19 96 08/20/24 23:36 56 L 14 95 08/20/24 23:24 64 21 96 08/20/24 23:03 55 L 14 94 08/20/24 23:01 124/95 08/20/24 23:01 124/95 08/20/24 22:57 63 12 94 08/20/24 22:54 59 L 15 95 (1) ST elevation (STEMI) myocardial infarction Involved coronary artery: unspecified coronary artery Qualified Code(s): I21.3 - ST elevation (STEMI) myocardial infarction of unspecified site
[2024-08-21 12:07] VITALS: TEMP 97.9
--- NOTE | 2024-08-21 12:33 | XRay Report ---
XR chest 2V PA/lateral CLINICAL HISTORY: SOB, CHF COMPARISON STUDY: 11/11/2007 FINDINGS: Heart size and pulmonary vasculature are normal. No effusion, consolidation, or pneumothora x. There is mild scoliosis. IMPRESSION: No acute findings. ACT 112: Negative or not required by law. Electronically signed by: Piter Davila M.D. 08/21/2024 12:32 PM
[2024-08-21] MEDS: MAGNESIUM SULFATE / D5W 1 GM/100 ML BAG IV ONE (13:02)
[2024-08-21] MEDS: FUROSEMIDE INJ 20 MG/2 ML VIAL IV ONE (13:02)
[2024-08-21] MEDS: POTASSIUM CHLORIDE CRTAB 20 MEQ TABCR PO STA (13:02)
[2024-08-21 15:03] VITALS: O2SAT 96
[2024-08-21 18:17] LABS: BUN Creatinine Ratio 14.3 (10-20); Calcium 9.2 mg/dl (8.6-10.3); Creatinine Clr Calc Pharmacy 56.3 ml/min; Potassium 4.4 mmol/L (3.5-5.1)
[2024-08-21 22:28] LABS: Appearance Urine Clear (Clear); Bilirubin Urine Negative (Negative); Blood Urine Negative (Negative); Color Urine Yellow; Glucose Urine UA Negative (Negative); Ketones Urine Trace (Negative); Leukocyte Esterase Urine Negative (Negative); Nitrite Urine Negative (Negative); Protein Urine Negative (Negative); Specific Gravity Urine 1.027 (1.000-1.030); Urobilinogen Urine Negative (Negative)
[2024-08-22 05:04] LABS: Basophils # (auto) 0.09 K/uL (0.00-0.20); Basophils % (auto) 0.9 %; Eosinophils # (auto) 0.21 K/uL (0.00-0.50); Eosinophils % (auto) 2.1 %; Hematocrit (blood only) 41.6 % (37.0-47.0); Hemoglobin 15.1 g/dl (12.0-16.0); Immature Granulocytes # (auto) 0.06 K/uL (0.01-0.20); Immature Granulocytes % (auto) 0.6 %; Lymphocytes # (auto) 1.92 K/uL (1.20-3.40); Lymphocytes % (auto) 19.1 %; Mean Corpuscular Hemoglobin 33.9 pg (25.0-34.0); Mean Corpuscular Hgb Conc 36.3 g/dL (32.0-36.0); Mean Corpuscular Volume 93.5 fL (80.0-100.0); Mean Platelet Volume 10.6 fL (9.4-12.4); Neutrophils # (auto) 6.98 K/uL (1.40-6.50); Neutrophils % (auto) 69.3 %; Platelet Count 275 K/uL (130-400); RDW Coefficient of Variation 12.6 % (11.5-14.5); RDW Standard Deviation 43.3 fL (36.4-46.3); Red Blood Count 4.45 M/uL (4.20-5.40); White Blood Count 10.06 K/ul (4.8-10.8)
[2024-08-22 05:21] LABS: Albumin Globulin Ratio 1.3 (0.9-2); Albumin Level 4.1 gm/dl (3.4-5.0); BUN Creatinine Ratio 23.4 (10-20); Bilirubin,Total 0.6 mg/dl (0.2-1.0); Calcium 9.2 mg/dl (8.6-10.3); Creatinine Clr Calc Pharmacy 83.8 ml/min; Globulin 3.2 gm/dl (2.5-4.0); Magnesium 2.2 mg/dl (1.7-2.4); Phosphorus 3.7 mg/dl (2.5-4.9); Potassium 4.1 mmol/L (3.5-5.1); Total Protein 7.3 gm/dl (6.0-8.3)
--- NOTE | 2024-08-22 08:06 | Cardiology Progress Note ---
Date of Service August 22, 2024 Assessment & Plan (1) ST elevation (STEMI) myocardial infarction: (2) Presence of stent in LAD coronary artery: (3) HFrEF (heart failure with reduced ejection fraction): (4) Hypertension: (5) Dyslipidemia, goal LDL below 70: Plan 08/20/24 Patient presenting with several hours of chest pain yesterday with findings consistent of anterior STEMI on EKG. Cardiac cath revealing 100% occlusion of the LAD and patient received 3 overlapping REGINA. She tolerated procedure and symptoms improved post intervention. Echo post procedure revealed large anterior wall motion abnormality with LVEF 40-45% HS troponin 38 on arrival, increasing to 18,477 and trending down to 17,277 this morning. Started on guideline directed medical therapies including ASA 81 mg daily, Brilinta 90 mg BID, rosuvastatin 10 mg daily (recently stopped atorvastatin due to myalgias). Dual antiplatelet therapy recommended for at least 1 year, preferably longer given complex interventions per interventionalist. Previously on metoprolol tartrate - Transition to metoprolol succinate 25 mg BID given reduced LVEF. Started losartan 25 mg daily. Likely would benefit from Entresto. As an outpatient she has been on spironolactone 50 mg daily. She has hyponatremia on labs today - reduce dose to 25 mg daily. 08/21/24: Patient without recurrent angina. Episodic SOB reported, resolves quickly. Occurs when she is trying to fall asleep. Would consider sleep med evaluation given PND. Patient reports her son had similar symptoms on Brilinta, which has potential for symptoms. However given recent intervention, need to continue antiplatelet therapy with ASA and Brilinta. If symptoms persist, could consider future transition to plavix. Continue metoprolol succinate 25 mg BID Started on Entresto - tolerating. BP controlled Sodium is trending lower despite reducing spironolactone. Will hold/stop for now. Repeat BMP tomorrow AM Supplement magnesium today at 1.8 Continue statin. Prior history of statin intolerance. If she fails to tolerate rosuvastatin, consider PCSK9 inhib Cardiac rehab recommended upon discharge. Compliance with meds encouraged. 08/22/24: Doing well and denies recurrent anginal symptoms Appears euvolemic upon examination Heart rate and blood pressure remain stable Sodium (128) has continued to trend lower despite holding spironolactone Will defer to nephrology for recommendations regarding hyponatremia Continue dual antiplatelet therapy with low-dose aspirin and Brilinta Continue toPROL XL and Entresto as per current regimen Prior history of statin intolerance and would continue rosuvastatin as prescribed. May need to consider PCSK-9 inhibitor if she fails statin therapy. Encouraged smoking cessation and discussed outpatient resources Will need outpatient [place] referral for GDMT optimization Recommend cardiac rehab upon discharge Case discussed and coordinated with Dr. Louis. Please see Dr. Louis notes for further recommendations. I spent a total of 30 minutes coordinating, documenting, and providing care for this patient excluding time spent in the performance of separately billed services or time spent by another provider/QHP. DEBBIE Bond Department of Cardiology Admission and Anticipated Discharge Date Admission Date: August 19, 2024 Supervising Physician Co-Signing Physician Notes I spent a total of 30 minutes on the date of service in preparation, delivery, and documentation of the care provided to this patient, excluding any time spent in the performance of separately billed services. Patient doing well today. She denies chest pain, dyspnea, or syncope. On clinical exam she is euvolemic. No events noted on telemetry. Patient was able to ambulate without exertional symptoms. Patient is to continue Aspirin and Brilinta uninterrupted (patient advised to not stop unless discussing with cardiology). She is unable to tolerate higher doses of Statins and will need to be enrolled in [facility] clinic as an outpatient to get her on a PCSK9 inhibitor. She is on Metoprolol succinate and Entresto for her Ischemic cardiomyopathy (LVEF 40-45%). Unclear etiology of hyponatremia. Does not appear volume overloaded. Follow up nephrology recommendations. Otherwise from cardiac standpoint patient can follow up in 1-2 weeks. Subjective Seen by cardiology today for examination and follow-up. Doing well and resting comfortably in bed on room air. Sleep well overnight with no episodic SOB. Denies orthopnea or PND. Denies tachy palpitations, shortness of breath, dyspnea on exertion, lightheadedness, syncope, or worsening edema. Sodium has continued to trend down. Sinus rhythm/bradycardia with rates 50 to 60s upon telemetry. No significant arrhythmias. Chart, medications, and telemetry reviewed. Review of Systems Review of Systems: See HPI for pertinent positives. All others negative other than those noted in the HPI. CONSTITUTIONAL: No change in weight, No weakness, No fatigue, No fevers, No sweats or chills. HEENT: No visual changes, No epistaxis, No bleeding gums, No dysphagia, PULMONARY: No cough, sputum, or hemoptysis, No wheezing, No shortness of breath, and No recent change in breathing. CARDIOVASCULAR: No chest pain, No dyspnea on exertion, No edema, No palpitations, No syncope, No claudication, No calf pain. GASTROINTESTINAL: No change in appetite, No abdominal pain, No change in bowel habits, No significant heartburn, No nausea, No vomiting, No diarrhea, No constipation, No blood in stools or black tarry stools, No dysphagia. HEMATOLOGIC: No abnormal bleeding and No bruising. NEUROLOGICAL: No falls, No dizziness, No lightheadedness, Normal balance, No headaches, and No weakness. PSYCH: No sleep disturbances, No mood changes. Physical Exam Physical Exam: Vital signs within normal limits as above. General: Well developed and nourished. No acute distress. A+Ox3. HEENT: Normocephalic. Atraumatic. EOMI. Conjunctiva and sclera clear. NECK: Trachea midline. No thyromegaly. No carotid bruits. No JVD. Carotid upstrokes are brisk. Heart: Distant heart sounds. RRR. S1 and S2 noted. No murmur. No rubs or gallops. PMI non displaced. Lungs: No acute respiratory distress. Clear to auscultation. No wheezes.No rhonchi. No rales. Abdomen: Obese. Normal bowel sounds. Soft. Nontender. No abdominal bruits. Extremities: Normal capillary refill. No edema. No clubbing or cyanosis. Pulses: radial=2/4, dorsal pedis=2/4. Skin: Warm and dry. NEURO: No focal deficits. PSYCH: Appropriate affect and insight. Results & Data Vital Signs (Past 12 Hours) Vital Signs Temp Pulse Resp BP 08/22/24 06:03 60 15 08/22/24 05:00 60 16 08/22/24 04:19 131/76 08/22/24 04:00 60 10 L 08/22/24 03:57 36.6 C 08/22/24 03:39 56 L 20 08/22/24 02:00 61 13 08/22/24 01:06 56 L 13 08/22/24 00:03 57 L 15 08/21/24 23:19 116/69 08/21/24 23:18 61 18 08/21/24 23:06 56 L 13 08/21/24 22:06 61 18 08/21/24 21:00 36.6 C 08/21/24 21:00 61 13 08/21/24 20:36 62 17 08/21/24 20:36 131/83 08/21/24 20:36 131/83 08/21/24 20:36 131/83 08/21/24 20:03 68 17 Laboratory Results Cardiac Enzymes 08/22/24 Range/Units 04:33 AST 26 (13-39) U/L CBC 08/22/24 Range/Units 04:33 WBC 10.06 (4.8-10.8) K/ul RBC 4.45 (4.20-5.40) M/uL Hgb 15.1 (12.0-16.0) g/dl Hct 41.6 (37.0-47.0) % Plt Count 275 (130-400) K/uL Neut # (Auto) 6.98 H (1.40-6.50) K/uL Lymph # (Auto) 1.92 (1.20-3.40) K/uL [place] # (Auto) 0.80 H (0.11-0.59) K/uL Eos # (Auto) 0.21 (0.00-0.50) K/uL Baso # (Auto) 0.09 (0.00-0.20) K/uL Comprehensive Metabolic Panel 08/21/24 08/22/24 Range/Units 17:28 04:33 Sodium 127 L 126 L (136-145) mmol/L Potassium 4.4 4.1 (3.5-5.1) mmol/L Chloride 97 L 96 L (98-107) mmol/L Carbon Dioxide 19 L 22 (21-32) mmol/L BUN 20 22 (6-23) mg/dl Creatinine 1.40 H D 0.94 D (0.6-1.2) mg/dl Glucose 166 H 132 H (70-99(Fasting)) mg/dl Calcium 9.2 9.2 (8.6-10.3) mg/dl AST 26 (13-39) U/L ALT 15 (7-52) U/L Alkaline Phosphatase 66 (34-104) U/L Total Protein 7.3 (6.0-8.3) gm/dl Albumin 4.1 (3.4-5.0) gm/dl Intake and Output 08/21/24 08/22/24 08/22/24 22:59 06:59 14:59 Intake Total 580 / 940 Balance 580 / 940 Intake: IV 100 / 100 Magnesium Sulfate / D5w 1 gm In 100 / 100 100 ml @ 50 mls/hr IV ONE ONE Rx#:[id number] Oral 480 / 840 Other: # Unmeasured Voids 3 Diagnostic Findings Telemetry reviewed: (1) ST elevation (STEMI) myocardial infarction Involved coronary artery: unspecified coronary artery Qualified Code(s): I21.3 - ST elevation (STEMI) myocardial infarction of unspecified site
[2024-08-22 09:35] VITALS: BP 119/65; PULSE 60; RESP 17
--- NOTE | 2024-08-22 11:38 | Hospitalist Progress Note ---
Date of Service August 22, 2024 Assessment & Plan (1) ST elevation (STEMI) myocardial infarction: Plan Patient is 59 year old female with PMHx significant for DM II, HTN, PVC's on Flecainide, COPD, hypothyroidism, depression, chronic back pain, RLS, tobacco use, obesity who presented to the ER with anterior neck pain, chest pain with radiation to the back and RUE pain. En route given 324mg aspirin and 3 SL nitro and fentanyl by EMS and was made a heart alert. 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 She is s/p PCI of the LAD with implantation of 3 overlapped drug-eluting stents. STEMI EKG with ST elevation in the setting of chest pain hs-Trop elevation from 38 to 18,477.8 to 17,277.3 Resting echo with EF 40-45%, large apical, septal anteroseptal wall motion abnormalities with hypokinesis to dyskinesis, Grade 1 diastolic dysfunction S/P cardiac cath on 08/19/24. Report from Interventional Cardiology noted the following: "...1. Severe multivessel coronary disease involving the LAD and PDA. LAD is the culprit. 2. Successful PCI of the LAD with implantation of 3 overlapped drug-eluting stents. 3. Patient will be on dual antiplatelet therapy for at least 1 to 2 years (preferably indefinitely secondary to extensive stenting). 4. Guideline directed medical therapy for secondary prevention of coronary disease has been initiated. This includes low-dose aspirin, high intensity statin therapy, beta-ld, and ARB (given diabetes). Additional titration of regimen to achieve target heart rate and blood pressure... 5. FLECAINIDE has been discontinued with newly identified CAD..." ICU for close telemetry monitoring Continue Aspirin 81mg, Brilinta 90mg BID, Toprol 25mg BID, rosuvastatin 10mg daily with Entresto spironolactone 25mg currently on hold Cardiology consulted, appreciate recs Continue to monitor PVC's History PVCs, has seen [facility] EP cardiology in past. Was on Flecainide and metoprolol tartrate 50mg 5 times a day Cardiology consulted as above -continue Toprol 25mg BID -Flecainide discontinued Continue to monitor on telemetry Hyponatremia Sodium of 132 on admission, downtrending Appears mild, chronic Urine electrolytes ordered for further workup Nephrology consulted, appreciate recs Type 2 diabetes mellitus A1c: 6.5 on 08/11/24 Hold home metformin Novolog sliding scale per protocol Hypertension Previously was on home amlodipine 10mg daily, metoprolol tartrate 50mg 5x day, spironolactone Per Cardiology as noted above: Discontinue amlodipine Continue with Toprol XL 25mg BID Continue spironolactone 25mg daily- currently on hold Continue entresto at BID dosing Continue to monitor BP COPD (chronic obstructive pulmonary disease) No signs exacerbation Continue home inhalers Hypothyroidism TSH: 0.87 on 08/11/24 Continue levothyroxine Depression Continue venlafaxine Tobacco use disorder Was smoking 1.5ppd and over past 5 months is now down to smoking 5 cigarettes a day Encourage cessation Pt with adhesive allergy- consider nicotine gum while hospitalized to help with cessation Diet: HH/DMII DVT Prophylaxis: SCDs Dispo: PT/OT ordered for recs, likely home once medically stable Admission and Anticipated Discharge Date Admission Date: August 19, 2024 Physical Exam Physical Exam: General: Alert, oriented. No acute distress Skin: No noted rashes or bruises Psych: Appropriate mood and affect HEENT: NC/AT CV: RRR Resp: Breath sounds clear bilaterally, no increased effort of breathing Abdomen: Soft, nontender Extremities: No edema in lower extremities bilaterally. Results & Data Results & Data Vital Signs (Past 12 Hours) Vital Signs Temp Pulse Resp BP Pulse Ox O2 Del Method 08/22/24 09:03 60 17 119/65 96 Room Air 08/22/24 08:09 63 13 08/22/24 08:00 92 H 08/22/24 07:15 56 L 24 08/22/24 06:03 60 15 08/22/24 05:00 60 16 08/22/24 04:19 131/76 08/22/24 04:00 60 10 L 08/22/24 03:57 36.6 C 08/22/24 03:39 56 L 20 08/22/24 02:00 61 13 08/22/24 01:06 56 L 13 08/22/24 00:03 57 L 15 (1) ST elevation (STEMI) myocardial infarction Involved coronary artery: unspecified coronary artery Qualified Code(s): I21.3 - ST elevation (STEMI) myocardial infarction of unspecified site
[2024-08-22] MEDS: FUROSEMIDE 40 MG/4 ML VIAL IV ONE (13:43)
[2024-08-22 14:23] LABS: BUN Creatinine Ratio 22.2 (10-20); Calcium 9.1 mg/dl (8.6-10.3); Creatinine Clr Calc Pharmacy 79.6 ml/min; Potassium 4.3 mmol/L (3.5-5.1)
--- NOTE | 2024-08-22 18:20 | Discharge Summary ---
Discharge Summary Date of Service August 22, 2024 Principal Dx & Hospital Course #1 = Principal Diagnosis (1) ST elevation (STEMI) myocardial infarction: Plan Patient is 59 year old female with PMHx significant for DM II, HTN, PVC's on Flecainide, COPD, hypothyroidism, depression, chronic back pain, RLS, tobacco use, obesity who presented to the ER with anterior neck pain, chest pain with radiation to the back and RUE pain. En route given 324mg aspirin and 3 SL nitro and fentanyl by EMS and was made a heart alert. 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 She is s/p PCI of the LAD with implantation of 3 overlapped drug-eluting stents. STEMI EKG with ST elevation in the setting of chest pain hs-Trop elevation from 38 to 18,477.8 to 17,277.3 Resting echo with EF 40-45%, large apical, septal anteroseptal wall motion abnormalities with hypokinesis to dyskinesis, Grade 1 diastolic dysfunction S/P cardiac cath on 08/19/24. Report from Interventional Cardiology noted the following: "...1. Severe multivessel coronary disease involving the LAD and PDA. LAD is the culprit. 2. Successful PCI of the LAD with implantation of 3 overlapped drug-eluting stents. 3. Patient will be on dual antiplatelet therapy for at least 1 to 2 years (preferably indefinitely secondary to extensive stenting). 4. Guideline directed medical therapy for secondary prevention of coronary disease has been initiated. This includes low-dose aspirin, high intensity statin therapy, beta-ld, and ARB (given diabetes). Additional titration of regimen to achieve target heart rate and blood pressure... 5. FLECAINIDE has been discontinued with newly identified CAD..." ICU for close telemetry monitoring post procedure Continue Aspirin 81mg, Brilinta 90mg BID, Toprol 25mg BID, rosuvastatin 10mg daily with Entresto spironolactone 25mg discontinued, amlodipine discontinued and home metoprolol tartrate switched to Toprol. Flecainide discontinued. Cardiology consulted, appreciate recs. Cardiology recommended the following on discharge: "...Patient doing well today. She denies chest pain, dyspnea, or syncope. On clinical exam she is euvolemic. No events noted on telemetry. Patient was able to ambulate without exertional symptoms. Patient is to continue Aspirin and Brilinta uninterrupted (patient advised to not stop unless discussing with cardiology). She is unable to tolerate higher doses of Statins and will need to be enrolled in [facility] clinic as an outpatient to get her on a PCSK9 inhibitor. She is on Metoprolol succinate and Entresto for her Ischemic cardiomyopathy (LVEF 40-45%). Unclear etiology of hyponatremia. Does not appear volume overloaded. Follow up nephrology recommendations. Otherwise from cardiac standpoint patient can follow up in 1-2 weeks... ...Continue dual antiplatelet therapy with low-dose aspirin and Brilinta Continue toPROL XL and Entresto as per current regimen Prior history of statin intolerance and would continue rosuvastatin as prescribed. May need to consider PCSK-9 inhibitor if she fails statin therapy. Encouraged smoking cessation and discussed outpatient resources Will need outpatient MTM referral for GDMT optimization Recommend cardiac rehab upon discharge..." Continue to monitor PVC's History PVCs, has seen [facility] cardiology in past. Was on Flecainide and metoprolol tartrate 50mg 5 times a day Cardiology consulted as above -discontinue metoprolol tartrate, continue Toprol 25mg BID -Flecainide discontinued Cardiology recommendations as noted above Close cardiology followup after discharge Hyponatremia Sodium of 132 on admission, downtrended to 126 on the day of discharge Appears mild, chronic Urine electrolytes ordered for further workup Nephrology consulted, appreciate recs NEPHROLOGY DID NOT RECOMMEND DISCHARGE, however pt left against medical advice. Na 126 at the time of discharge, nephrology recommended discharge when Na 130 or above. Pt was able to verbalize and repeat what can happen in the setting of low sodium after extensive discussion of the risks of discharge at this time. She was able to note that she can have dizziness, weakness, seizures, loss of consciousness, and other symptoms that can lead up to and include . She stated that she realizes that if she dies or has any further complications that it will be due to fault of her own. Nephrology recommending discharge with urea 15mg BID and torsemide 40mg daily. She will need close pcp followup for continued lab monitoring and followup Type 2 diabetes mellitus A1c: 6.5 on 08/11/24 Hold home metformin Novolog sliding scale per protocol Hypertension Previously was on home amlodipine 10mg daily, metoprolol tartrate 50mg 5x day, spironolactone Per Cardiology as noted above: Discontinue amlodipine Continue with Toprol XL 25mg BID Continue spironolactone 25mg daily- currently on hold Continue entresto / at BID dosing Continue to monitor BP COPD (chronic obstructive pulmonary disease) No signs exacerbation Continue home inhalers Hypothyroidism TSH: 0.87 on 08/11/24 Continue levothyroxine Depression Continue venlafaxine Tobacco use disorder Was smoking 1.5ppd and over past 5 months is now down to smoking 5 cigarettes a day Encourage cessation Pt with adhesive allergy- consider nicotine gum while hospitalized to help with cessation Notes For Next Care Provider PT LEFT AMA NEPHROLOGY DID NOT RECOMMEND DISCHARGE, however pt left against medical advice. Na 126 at the time of discharge, nephrology recommended discharge when Na 130 or above. Pt was able to verbalize and repeat what can happen in the setting of low sodium after extensive discussion of the risks of discharge at this time. She was able to note that she can have dizziness, weakness, seizures, loss of consciousness, and other symptoms that can lead up to and include . She stated that she realizes that if she dies or has any further complications that it will be due to fault of her own. Nephrology recommending discharge with urea 15mg BID and torsemide 40mg daily. She will need close pcp followup for continued lab monitoring and followup Medication Changes From Visit Per Cardiology: Discontinue spironolactone Discontinue amlodipine Discontinue Flecainide Discontinue home metoprolol tartrate STARTED ON/CONTINUE: Brilinta 90mg BID aspirin 81mg daily Rosuvastatin 10mg daily Metoprolol succinate 25mg BID Entresto 26/24mg BID Per Nephrology: urea 15mg BID torsemide 40mg daily NEPHROLOGY DID NOT RECOMMEND DISCHARGE, however pt left against medical advice. Na 126 at the time of discharge, nephrology recommended discharge when Na 130 or above. Pt was able to verbalize and repeat what can happen in the setting of low sodium after extensive discussion of the risks of discharge at this time. She was able to note that she can have dizziness, weakness, seizures, loss of consciousness, and other symptoms that can lead up to and include . She stated that she realizes that if she dies or has any further complications that it will be due to fault of her own. Nephrology recommending discharge with urea 15mg BID and torsemide 40mg daily. She will need close pcp followup for continued lab monitoring and followup Admission HPI Per Admitting Provider Patient is 59 year old female with PMH DM II, HTN, PVC's on Flecainide, COPD, hypothyroidism, depression, chronic back pain, RLS, tobacco use, obesity presented to ER with c/o CP this morning. Patient reports woke up this morning and had aching/soreness sensation of throat/anterior neck region. Then started with pain to chest that radiated to back and reports RUE pain. States had associated nausea and vomiting. She was given 324mg aspirin and 3 SL nitro and fentanyl by EMS and was a heart alert. 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 Patient reports upon leaving school laboratory technician and arriving to ICU she had some anterior chest pain that she rated 2 out of 10 on pain scale that self resolved in several minutes. Patient denies any N/V, back pain with this episode. She is currently chest pain free. She has chronic palpitations and takes metoprolol tartrate fives times a day as well as flecainide. Patient reports chronic paresthesias extremities and chronic back pain. She denies any increased palpitations Denies SOB. Denies fever/chills, diarrhea, constipation, SOW, dizziness, syncope, vision changes, neck pain, cough, rhinorrhea, abdominal pain, extremity weakness, extremity edema, rashes, urinary symptoms. Admission Exam Per Admitting Provider General: no distress, obese female Head: normocephalic, atraumatic Eyes: conjunctiva non-injected, anicteric ENT: normal inspection external ears, nose, mucous membranes moist Neck: supple, trachea midline Lungs: clear, no respiratory distress, no wheezing/rhonchi/rales CV: RRR, no murmur, no pretibial edema Abd: protuberant, normal BS, soft, non-tender Ext: no cyanosis, no calf tenderness Neuro: A&O x 3, no focal deficits noted, normal affect Skin: warm, dry Discharge Exam General: Alert, oriented. No acute distress HEENT: NC/AT CV: RRR Resp: Breath sounds clear bilaterally, no increased effort of breathing Abdomen: Soft, nontender Extremities: No edema in lower extremities bilaterally. Updated Medication List Medication Instructions Recorded Confirmed Type albuterol sulfate 90 mcg/actuation 2 inha inhalation QID PRN 04/17/18 08/19/24 Rx aerosol inhaler shortness of breath or wheezing #1 g cholecalciferol (vitamin D3) 1,250 1,250 mcg PO .weekly 06/12/22 08/19/24 History mcg (50,000 unit) tablet metformin 500 mg tablet 500 mg PO PM 06/12/22 08/19/24 History multivitamin 1 tab PO DAILY 06/12/22 08/19/24 History trazodone 50 mg tablet 100 mg PO HS PRN Insomnia 07/27/22 08/19/24 History umeclidinium 62.5 mcg-vilanterol 1 inh inhalation QAM 07/27/22 08/19/24 History 25 mcg/actuation powdr for inhalation (Anoro Ellipta) gabapentin 400 mg tablet 400 mg PO TID 12/18/22 08/19/24 History levothyroxine 88 mcg tablet 88 mcg PO DAILY #30 tabs 12/28/22 08/19/24 Rx venlafaxine 150 mg 150 mg PO PM 08/19/24 08/19/24 History capsule,extended release 24 hr venlafaxine 75 mg tablet,extended 75 mg PO PM 08/19/24 08/19/24 History release 24 hr aspirin 81 mg tablet,delayed 81 mg PO QAM #30 tabs 08/22/24 Rx release metoprolol succinate 25 mg 25 mg PO BID #60 tabs 08/22/24 Rx tablet,extended release 24 hr rosuvastatin 10 mg tablet 10 mg PO QAM #30 tabs 08/22/24 Rx sacubitril 24 mg-valsartan 26 mg 1 tab PO BID #60 tabs 08/22/24 Rx tablet (Entresto) ticagrelor 90 mg tablet (Brilinta) 90 mg PO BID #60 tabs 08/22/24 Rx torsemide 40 mg tablet 40 mg PO DAILY #30 tabs 08/22/24 Rx urea 15 gram oral powder packet 1 packet PO BID #8 ea 08/22/24 Rx Hospital Stay Data Consultations 08/19/24 14:39 Consult Spiral Gear Generator Routine 08/19/24 16:23 Consult Cardiology Routine 08/21/24 08:34 Consult Nephrology Routine Procedures Performed Operation Date: 08/19/24 13:00 Actual Procedures p Cineradiography w/Routine Exam - Haresh Diaz MD, PhD p Aspiration/PCI w/REGINA for Stemi - Haresh Diaz MD, PhD Diagnostic Imagining Performed 08/19/24 13:02 CL Cath Imgs for PACS use only Stat Chest X-Ray 08/21/24 11:43 XR chest 2V PA/lateral CLINICAL HISTORY: SOB, CHF COMPARISON STUDY: 11/11/2007 FINDINGS: Heart size and pulmonary vasculature are normal. No effusion, consolidation, or pneumothorax. There is mild scoliosis. IMPRESSION: No acute findings. ACT 112: Negative or not required by law. Electronically signed by: Piter Davila M.D. 08/21/2024 12:32 PM Pending Results Patient Have Any Pending Studies at Discharge: No Discharge Instructions Given to Patient (Per Discharging Provider) Josie, It was recommended that you stay in the hospital to have your low sodium levels evaluated. However, you have chosen to leave against medical advice. You indicated that you understand the risks associated with your decision. You had a heart attack and you were seen by the care analyst who made some changes to your medications. They advise discontinuing your home spironolactone and amlodipine. They also recommend discontinuing the flecainide. Your metoprolol was also changed as noted below. The welt drawer recommended that you stay until your sodium is 130 but you have chosen to go home. He recommends that you take urea 15mg twice a day and a daily torsemide 40mg daily. Please note that there is a chance that your sodium levels can decrease even further after discharge. Low sodium can cause seizures, loss of consciousness, irregular heart beats, dizziness, weakness etc. You have verbalized that you are aware of those risks. Please keep close follow up with your primary care provider after discharge. Please do not hesitate to come back to the emergency room if your symptoms worsen or return. Total Time Total Time Spent Total Time Spent (In Minutes): 60
== END 2024-08-22 15:45 | disposition left against medical advice (07) | DRG 322 ==
LOC: ED 13:00 → 1E 13:25 → SUATTDRO 14:37 → 1E 14:37